=== PATIENT | female | born 1935 | race Asian ===

== ENCOUNTER 2016-06-08 11:30 | Inpatient (IN) | payer MEDICARE, OTHER ==
[~2016-06-08] VITALS: Ht 154.9 cm; Wt 48.9 kg
[2016-06-08] MEDS ORDERED: SERT50TA12 PO (11:45)
[2016-06-08] MEDS ORDERED: GABA-529 PO (11:45)
[2016-06-08] MEDS ORDERED: CLON.3 PO (11:45)
[2016-06-08] MEDS ORDERED: TELM40 PO (11:45)
[2016-06-08] MEDS ORDERED: CARV12 PO (11:45)
[2016-06-08] MEDS ORDERED: insulin SUBCON (11:45)
[2016-06-08] MEDS ORDERED: ACET-2247 PO (11:45)
[2016-06-08] MEDS ORDERED: PRAV40 PO (11:45)
[2016-06-08] MEDS ORDERED: CLON.3P TD (11:57)
[2016-06-08] MEDS ORDERED: SODIUM CHLORIDE 0.9% 1,000 ML IV ONE (12:00)
[2016-06-08] MEDS ORDERED: ACETAMINOPHEN 1000 MG/ISO-OSM 100 ML IV ONE (12:00)
[2016-06-08 12:08] LABS: BASOPHILS # (AUTO) 0.01 K/uL (0.00-0.20); BASOPHILS % (AUTO) 0.1 % (0.0-2.0); EOSINOPHILS # (AUTO) 0.14 K/uL (0.00-0.70); EOSINOPHILS % (AUTO) 1.24 % (1.0-6.0); HEMATOCRIT 25.7 % (36-46); HEMOGLOBIN 8.4 g/dL (12.0-16.0); LYMPHOCYTES # (AUTO) 0.6 K/uL (1.0-4.8); LYMPHOCYTES % (AUTO) 5.5 % (22.0-44.0); MEAN CORPUSCULAR HGB CONC 32.8 G/dL (31.0-37.0); MEAN CORPUSCULAR VOLUME 95 fL (80-100); MONOCYTES # (AUTO) 0.7 K/uL (0.1-1.0); MONOCYTES % (AUTO) 5.7 % (2.0-9.0); NEUTROPHILS % (AUTO) 87.5 % (40.0-70.0); PLATELET COUNT (AUTO) 419 K/uL (150-450); RED BLOOD CELL COUNT(AUTO) 2.71 MIL/uL (4.00-5.20); WHITE BLOOD COUNT (AUTO) 11.4 K/uL (4.5-11.0)
[2016-06-08 12:24] LABS: ANION GAP 11 mmol/L (8-16); CALCIUM, TOTAL 8.9 mg/dL (8.8-10.5); CARBON DIOXIDE 24 mmol/L (22-29); CHLORIDE 99 mmol/L (98-107); CREATININE 1.49 mg/dL (0.60-1.30); GLOMERULAR FILTR. RATE CALC 34 mL/min (>60); POTASSIUM 4.4 mmol/L (3.5-5.1); SODIUM SERUM 134 mmol/L (136-145); UREA NITROGEN, BLOOD 28 mg/dL (7-18)
[2016-06-08 12:25] LABS: B-TYPE NATRIURETIC PEPTIDE 1120 pg/mL (0-100)
[2016-06-08 12:30] LABS: ALANINE AMINOTRANSFERASE 30 U/L (12-78); ALBUMIN 2.7 g/dL (3.4-5.0); ASPARTATE AMINOTRANSFERASE 31 U/L (15-37); BILIRUBIN,TOTAL 0.5 mg/dL (0.1-1.0); CREATINE KINASE, TOTAL 35 U/L (26-192); TOTAL PROTEIN, SERUM 7.1 g/dL (6.4-8.2)
[2016-06-08 12:38] LABS: RBC MORPHOLOGY COMMENT ABNORMAL RBC MORPH
[2016-06-08 13:21] LABS: GLUCOSE,POINT OF CARE 148 MG/DL (70-110)
[2016-06-08] MEDS ORDERED: FUROSEMIDE 40 MG/4 ML VIAL IVP ONE (13:45)
[2016-06-08] MEDS ORDERED: FURO20 PO (13:46)
[2016-06-08] MEDS ORDERED: AZITHROMYCIN 500 MG/NS 250 ML IV ONE (14:30)
[2016-06-08] MEDS ORDERED: CefTRIAXone 1 GM/DEXTROSE 50 ML IV ONE (14:30)
[2016-06-08 14:56] LABS: APPEARANCE,URINE CLEAR (CLEAR); GLUCOSE, URINE (UA) NEGATIVE (NEGATIVE); KETONES,URINE NEGATIVE (NEGATIVE); LEUKOCYTE ESTERASE ,URINE NEGATIVE (NEGATIVE); OCCULT BLOOD,URINE NEGATIVE (NEGATIVE); PH,URINE 6.5 (5.0-8.0); PROTEIN,URINE SEE CONFIRM (NEGATIVE)
[2016-06-08 14:57] LABS: ADD UA MICROSCOPIC YES
[2016-06-08 14:59] LABS: SULFOSALICYLIC ACID,URINE 2+ (Negative)
[2016-06-08 15:01] LABS: RBC,URINE 0-2 /HPF (0-2); SQUAMOUS EPITHELIAL CELL,UR Few /LPF (None Seen); WBC,URINE 0-2 /HPF (0-5)
[2016-06-08 16:39] LABS: INFLUENZA TYPE B NEGATIVE FOR TYPE B (NEGATIVE)
[2016-06-08] MEDS ORDERED: ZOLPIDEM TARTRATE 5 MG TABLET PO PRN (17:00)
[2016-06-08] MEDS ORDERED: CloNIDine HCL 0.3 MG/24 HOUR PATCH TD SCH (17:00)
[2016-06-08] MEDS ORDERED: BISACODYL 10 MG RECTAL RECTAL SUPPOSITORY PR PRN (17:00)
[2016-06-08] MEDS ORDERED: ALBUTEROL SULFATE 2.5 MG/0.5 ML NEB SOLUTION NEB PRN (17:00)
[2016-06-08] MEDS ORDERED: ONDANSETRON HCL 4 MG/2 ML VIAL IVP PRN (17:00)
[2016-06-08] MEDS ORDERED: MAGNESIUM HYDROXIDE SUSPENSION 30 ML UDCUP PO PRN (17:00)
[2016-06-08] MEDS ORDERED: IPRATROPIUM BROMIDE 0.5 MG/2.5 ML NEB SOLUTION NEB PRN (17:00)
[2016-06-08] MEDS ORDERED: HYDROCODONE/ACETAMINOPHEN 5-325 MG TABLET PO PRN (17:15)
[2016-06-08] MEDS ORDERED: DEXTROSE 50%-WATER 25 GM/50 ML SYRINGE IVP PRN (17:15)
[2016-06-08] MEDS ORDERED: ACETAMINOPHEN 500 MG TABLET PO PRN (17:15)
[2016-06-08 17:33] VITALS: BP 154/74
[2016-06-08 19:31] VITALS: BP 186/80
[2016-06-08] MEDS: FUROSEMIDE 20 MG/2 ML VIAL IVP SCH (20:10)
[2016-06-08] MEDS: HEPARIN SODIUM,PORCINE 5,000 UNITS/ML VIAL SQ SCH (20:11)
[2016-06-08] MEDS: CARVEDILOL 12.5 MG TABLET PO SCH (20:13)
[2016-06-08 21:00] VITALS: BP 157/88
[2016-06-08] MEDS ORDERED: SODIUM CHLORIDE 0.9% 500 ML IV ONE (21:52)
[2016-06-08] MEDS: DOXYCYCLINE 100 MG in DEXTROSE 5%-WATER 100 ML IV SCH (22:14)
[2016-06-08] MEDS: SERTRALINE HCL 50 MG TABLET PO SCH (22:14)
[2016-06-08 23:46] VITALS: BP 205/90
[2016-06-09] VITALS (9 sets, daily range): BP systolic 114–213; BP diastolic 76–107
[2016-06-09] MEDS: HydrALAZINE HCL 10 MG TABLET PO PRN ×3 (00:01→17:12)
[2016-06-09 05:09] LABS: TROPONIN I 0.05 ng/mL (0.00-0.05)
[2016-06-09 05:21] LABS: AMMONIA < 10 umol/L (11-32)
[2016-06-09 05:37] LABS: BASOPHILS % (AUTO) 0.1 % (0.0-2.0); EOSINOPHILS % (AUTO) 1.9 % (1.0-6.0); HEMATOCRIT 25.5 % (36-46); HEMOGLOBIN 8.1 g/dL (12.0-16.0); LYMPHOCYTES % (AUTO) 8.5 % (22.0-44.0); MEAN CORPUSCULAR HEMOGLOBIN 30.1 pg (26.0-34.0); MEAN CORPUSCULAR HGB CONC 31.9 G/dL (31.0-37.0); MEAN CORPUSCULAR VOLUME 94 fL (80-100); MONOCYTES # (AUTO) 0.9 K/uL (0.1-1.0); MONOCYTES % (AUTO) 7.6 % (2.0-9.0); NEUTROPHILS # (AUTO) 9.3 K/uL (1.8-7.7); NEUTROPHILS % (AUTO) 81.9 % (40.0-70.0); PLATELET COUNT (AUTO) 409 K/uL (150-450); RED CELL DISTRIBUTION WIDTH 18.4 % (11.5-14.5); WHITE BLOOD COUNT (AUTO) 11.4 K/uL (4.5-11.0)
[2016-06-09 05:49] LABS: PROCALCITONIN (PCT) 30.86 ng/mL (<0.50)
[2016-06-09 05:50] LABS: ANION GAP 12 mmol/L (8-16); CARBON DIOXIDE 26 mmol/L (22-29); CHLORIDE 99 mmol/L (98-107); CHOL/HDL RATIO 2.2 (3.9-5.7); CREATINE KINASE, TOTAL 36 U/L (26-192); CREATININE 1.54 mg/dL (0.60-1.30); GLOMERULAR FILTR. RATE CALC 32 mL/min (>60); PHOSPHORUS 3.9 mg/dL (2.5-4.9); POTASSIUM 3.8 mmol/L (3.5-5.1); SODIUM SERUM 137 mmol/L (136-145); THYROID STIMULATING HORMONE 1.02 uIU/mL (0.36-3.74); UREA NITROGEN, BLOOD 28 mg/dL (7-18)
[2016-06-09] MEDS: FUROSEMIDE 20 MG/2 ML VIAL IVP SCH ×2 (08:26→20:16)
[2016-06-09] MEDS: PANTOPRAZOLE SODIUM 40 MG/VIAL IVP SCH (08:26)
[2016-06-09] MEDS: DOXYCYCLINE 100 MG in DEXTROSE 5%-WATER 100 ML IV SCH ×2 (08:26→20:17)
[2016-06-09] MEDS: PRAVASTATIN SODIUM 40 MG TABLET PO SCH (08:27)
[2016-06-09] MEDS: CARVEDILOL 12.5 MG TABLET PO SCH ×2 (08:27→20:16)
[2016-06-09] MEDS: EPOETIN ALFA 10,000 UNITS/ML VIAL SQ SCH (08:28)
[2016-06-09] MEDS: HEPARIN SODIUM,PORCINE 5,000 UNITS/ML VIAL SQ SCH ×2 (08:28→20:16)
[2016-06-09] MEDS ORDERED: TELMISARTAN 40 MG TABLET PO SCH (09:00)
[2016-06-09] MEDS ORDERED: ENOXAPARIN SODIUM 40 MG/0.4 ML PF SYRINGE SQ SCH (09:00)
[2016-06-09 09:10] LABS: HEMOGLOBIN A1C 8.2 % (4.5-6.2)
[2016-06-09 09:29] LABS: VITAMIN B12 LEVEL 528 pg/mL (211-911)
[2016-06-09] MEDS ORDERED: POTASSIUM CHL 10 MEQ/WATER 50 ML IV PRN (09:30)
[2016-06-09] MEDS ORDERED: MAGNESIUM SULFATE 2 GM in DEXTROSE 5%-WATER 50 ML IV PRN (09:30)
[2016-06-09] MEDS ORDERED: MAGNESIUM SULFATE 4 GM/WATER 100 ML IV PRN (09:30)
[2016-06-09] MEDS ORDERED: POTASSIUM CHLORIDE 20 MEQ ER TABLET PO PRN ×2 (09:30)
[2016-06-09] MEDS ORDERED: MAGNESIUM OXIDE 400 MG TABLET PO PRN (09:30)
[2016-06-09 09:58] LABS: ABG A-A DIFF O2 31.6 mmHg (10-20.0); ABG BASE EXCESS 1.1 mmol/L (-2.0-3.0); ABG HCO3 25.4 mmol/L (22.0-26.0); ABG OXYHEMOGLOBIN 96.9 % (94.0-100.0); ABG PCO2 40 mmHg (35-45); ABG PH 7.423 (7.35-7.450); ALLEN TEST, BLOOD GAS Positive; TEMPERATURE, FAHRENHEIT, BG 97.7 FAHREN (96.0-98.6)
[2016-06-09] MEDS: ASPIRIN 325 MG TABLET PO SCH (10:30)
[2016-06-09] MEDS ORDERED: AmLODIPine BESYLATE 5 MG TABLET PO SCH (11:15)
[2016-06-09 12:17] LABS: GLUCOSE,POINT OF CARE 103 MG/DL (70-110)
[2016-06-09 13:02] LABS: GLUCOSE,POINT OF CARE 189 MG/DL (70-110)
[2016-06-09] MEDS ORDERED: AZITHROMYCIN 500 MG/NS 250 ML IV SCH (16:00)
[2016-06-09] MEDS: CefTRIAXone 1 GM/DEXTROSE 50 ML IV SCH (17:18)
[2016-06-09] MEDS: INSULIN ASPART 100 UNITS/ML SQ PRN ×2 (17:31→20:54)
[2016-06-09 19:56] LABS: GLUCOSE,POINT OF CARE 148 MG/DL (70-110)
[2016-06-09 19:57] LABS: GLUCOSE COMMENT 1 Received Meds; GLUCOSE,POINT OF CARE 279 MG/DL (70-110)
[2016-06-09] MEDS: SERTRALINE HCL 50 MG TABLET PO SCH (20:16)
[2016-06-09] MEDS: HydrALAZINE HCL 10 MG TABLET PO SCH (20:16)
[2016-06-09] MEDS: TRIAMCINOLONE 0.1% 15 GM OINTMENT TP SCH (20:16)
[2016-06-09] MEDS: AmLODIPine BESYLATE 5 MG TABLET PO SCH (20:16)
[2016-06-10 03:59] VITALS: BP 154/74
[2016-06-10 07:50] VITALS: BP 132/90
[2016-06-10 08:05] LABS: CALCIUM, TOTAL 9.1 mg/dL (8.8-10.5); CREATININE 1.53 mg/dL (0.60-1.30); MAGNESIUM 1.9 mg/dL (1.80-2.40); PHOSPHORUS 2.8 mg/dL (2.5-4.9); POTASSIUM 3.6 mmol/L (3.5-5.1)
[2016-06-10 08:28] LABS: BASOPHILS % (AUTO) 0.1 % (0.0-2.0); EOSINOPHILS % (AUTO) 3.1 % (1.0-6.0); HEMATOCRIT 25.8 % (36-46); HEMOGLOBIN 8.1 g/dL (12.0-16.0); LYMPHOCYTES # (AUTO) 1.3 K/uL (1.0-4.8); LYMPHOCYTES % (AUTO) 11.1 % (22.0-44.0); MEAN CORPUSCULAR HEMOGLOBIN 30.1 pg (26.0-34.0); MEAN CORPUSCULAR HGB CONC 31.6 G/dL (31.0-37.0); MEAN CORPUSCULAR VOLUME 95 fL (80-100); MONOCYTES # (AUTO) 1.1 K/uL (0.1-1.0); MONOCYTES % (AUTO) 9.2 % (2.0-9.0); NEUTROPHILS # (AUTO) 8.7 K/uL (1.8-7.7); NEUTROPHILS % (AUTO) 76.5 % (40.0-70.0); PLATELET COUNT (AUTO) 422 K/uL (150-450); RED CELL DISTRIBUTION WIDTH 17.7 % (11.5-14.5); WHITE BLOOD COUNT (AUTO) 11.4 K/uL (4.5-11.0)
[2016-06-10] MEDS: AmLODIPine BESYLATE 5 MG TABLET PO SCH ×2 (08:47→21:21)
[2016-06-10] MEDS: PRAVASTATIN SODIUM 40 MG TABLET PO SCH (08:48)
[2016-06-10] MEDS: HEPARIN SODIUM,PORCINE 5,000 UNITS/ML VIAL SQ SCH (08:48)
[2016-06-10] MEDS: PANTOPRAZOLE SODIUM 40 MG/VIAL IVP SCH (08:48)
[2016-06-10] MEDS: ASPIRIN 325 MG TABLET PO SCH (08:48)
[2016-06-10] MEDS: CARVEDILOL 12.5 MG TABLET PO SCH ×2 (08:48→21:21)
[2016-06-10] MEDS: DOXYCYCLINE 100 MG in DEXTROSE 5%-WATER 100 ML IV SCH ×2 (09:09→21:21)
[2016-06-10] MEDS: TRIAMCINOLONE 0.1% 15 GM OINTMENT TP SCH ×2 (09:09→21:22)
[2016-06-10] MEDS: FUROSEMIDE 20 MG/2 ML VIAL IVP SCH ×2 (09:15→21:21)
[2016-06-10] MEDS: HydrALAZINE HCL 10 MG TABLET PO SCH ×2 (09:54→21:22)
[2016-06-10 11:20] VITALS: BP 164/81
[2016-06-10] MEDS: INSULIN ASPART 100 UNITS/ML SQ PRN ×2 (12:57→21:24)
[2016-06-10] MEDS: TELMISARTAN 40 MG TABLET PO SCH (13:54)
[2016-06-10] MEDS: CefTRIAXone 1 GM/DEXTROSE 50 ML IV SCH (15:06)
[2016-06-10 15:46] VITALS: BP 140/73
[2016-06-10 19:52] VITALS: BP 141/76
[2016-06-10] MEDS: APIXABAN 2.5 MG TABLET PO SCH (21:22)
[2016-06-10] MEDS: AMIODARONE HCL 200 MG TABLET PO SCH (21:22)
[2016-06-10] MEDS: SERTRALINE HCL 50 MG TABLET PO SCH (21:22)
[2016-06-11] VITALS (7 sets, daily range): BP systolic 109–170; BP diastolic 52–75
[2016-06-11] MEDS: INSULIN ASPART 100 UNITS/ML SQ PRN ×3 (06:08→17:58)
[2016-06-11 06:20] LABS: BASOPHILS # (AUTO) 0.03 K/uL (0.00-0.20); BASOPHILS % (AUTO) 0.4 % (0.0-2.0); EOSINOPHILS # (AUTO) 0.34 K/uL (0.00-0.70); HEMATOCRIT 25.8 % (36-46); HEMOGLOBIN 8.6 g/dL (12.0-16.0); LYMPHOCYTES # (AUTO) 0.9 K/uL (1.0-4.8); LYMPHOCYTES % (AUTO) 10.5 % (22.0-44.0); MEAN CORPUSCULAR HEMOGLOBIN 30.8 pg (26.0-34.0); MEAN CORPUSCULAR HGB CONC 33.5 G/dL (31.0-37.0); MEAN CORPUSCULAR VOLUME 92 fL (80-100); MONOCYTES # (AUTO) 0.8 K/uL (0.1-1.0); MONOCYTES % (AUTO) 9.6 % (2.0-9.0); NEUTROPHILS # (AUTO) 6.6 K/uL (1.8-7.7); NEUTROPHILS % (AUTO) 75.7 % (40.0-70.0); PLATELET COUNT (AUTO) 423 K/uL (150-450); RED CELL DISTRIBUTION WIDTH 18.2 % (11.5-14.5); WHITE BLOOD COUNT (AUTO) 8.7 K/uL (4.5-11.0)
[2016-06-11 07:04] LABS: RBC MORPHOLOGY COMMENT ABNORMAL RBC MORPH
[2016-06-11 07:05] LABS: CALCIUM, TOTAL 9.3 mg/dL (8.8-10.5); CREATININE 1.69 mg/dL (0.60-1.30); MAGNESIUM 1.6 mg/dL (1.80-2.40); PHOSPHORUS 3.6 mg/dL (2.5-4.9); POTASSIUM 4.1 mmol/L (3.5-5.1)
[2016-06-11] MEDS ORDERED: MAGNESIUM SULFATE 1 GM in DEXTROSE 5%-WATER 50 ML IV ONE (07:45)
[2016-06-11] MEDS: PANTOPRAZOLE SODIUM 40 MG/VIAL IVP SCH (07:55)
[2016-06-11] MEDS: FUROSEMIDE 20 MG/2 ML VIAL IVP SCH ×2 (07:55→20:32)
[2016-06-11] MEDS: CARVEDILOL 12.5 MG TABLET PO SCH ×2 (07:56→20:32)
[2016-06-11] MEDS: ASPIRIN 325 MG TABLET PO SCH (07:56)
[2016-06-11] MEDS: AMIODARONE HCL 200 MG TABLET PO SCH ×2 (07:56→20:32)
[2016-06-11] MEDS: APIXABAN 2.5 MG TABLET PO SCH ×2 (07:56→20:32)
[2016-06-11] MEDS: EPOETIN ALFA 10,000 UNITS/ML VIAL SQ SCH (07:56)
[2016-06-11] MEDS: HydrALAZINE HCL 10 MG TABLET PO SCH ×2 (07:56→20:32)
[2016-06-11] MEDS: AmLODIPine BESYLATE 5 MG TABLET PO SCH ×2 (07:56→20:32)
[2016-06-11] MEDS: PRAVASTATIN SODIUM 40 MG TABLET PO SCH (07:56)
[2016-06-11] MEDS: TRIAMCINOLONE 0.1% 15 GM OINTMENT TP SCH ×2 (07:57→20:32)
[2016-06-11] MEDS: TELMISARTAN 40 MG TABLET PO SCH (07:57)
[2016-06-11] MEDS: DOXYCYCLINE 100 MG in DEXTROSE 5%-WATER 100 ML IV SCH ×2 (07:57→20:31)
[2016-06-11] MEDS: CefTRIAXone 1 GM/DEXTROSE 50 ML IV SCH (15:52)
[2016-06-11] MEDS ORDERED: INSULIN DETEMIR 100 UNITS/ML SQ SCH (18:00)
[2016-06-11 18:07] LABS: GLUCOSE COMMENT 1 Received Meds; GLUCOSE,POINT OF CARE 215 MG/DL (70-110)
[2016-06-11 18:08] LABS: GLUCOSE COMMENT 1 Received Meds; GLUCOSE,POINT OF CARE 170 MG/DL (70-110)
[2016-06-11 18:08] LABS: GLUCOSE,POINT OF CARE 115 MG/DL (70-110)
[2016-06-11 18:08] LABS: GLUCOSE,POINT OF CARE 105 MG/DL (70-110)
[2016-06-11 18:08] LABS: GLUCOSE COMMENT 1 Received Meds; GLUCOSE,POINT OF CARE 301 MG/DL (70-110)
[2016-06-11 18:12] LABS: GLUCOSE COMMENT 1 Received Meds; GLUCOSE,POINT OF CARE 178 MG/DL (70-110)
[2016-06-11 18:12] LABS: GLUCOSE COMMENT 1 Received Meds; GLUCOSE,POINT OF CARE 266 MG/DL (70-110)
[2016-06-11] MEDS: SERTRALINE HCL 50 MG TABLET PO SCH (20:32)
[2016-06-11 23:06] LABS: GLUCOSE COMMENT 1 Received Meds; GLUCOSE,POINT OF CARE 213 MG/DL (70-110)
[2016-06-11 23:07] LABS: GLUCOSE,POINT OF CARE 240 MG/DL (70-110)
[2016-06-11 23:07] LABS: GLUCOSE COMMENT 1 Juice/Food/D50 Given; GLUCOSE,POINT OF CARE 49 MG/DL (70-110)
[2016-06-12 03:50] VITALS: BP 179/70
[2016-06-12] MEDS: HydrALAZINE HCL 10 MG TABLET PO PRN (04:01)
[2016-06-12 06:23] LABS: IGG (IMMUNOFIXATION) 1018 mg/dL (700-1600)
[2016-06-12 07:08] LABS: CALCIUM, TOTAL 9.9 mg/dL (8.8-10.5); CREATININE 1.57 mg/dL (0.60-1.30); MAGNESIUM 1.8 mg/dL (1.80-2.40); PHOSPHORUS 4.2 mg/dL (2.5-4.9); POTASSIUM 4.2 mmol/L (3.5-5.1)
[2016-06-12 08:22] VITALS: BP 167/65
[2016-06-12] MEDS: HydrALAZINE HCL 10 MG TABLET PO SCH (08:40)
[2016-06-12] MEDS: PRAVASTATIN SODIUM 40 MG TABLET PO SCH (08:40)
[2016-06-12] MEDS: PANTOPRAZOLE SODIUM 40 MG/VIAL IVP SCH (08:40)
[2016-06-12] MEDS: AmLODIPine BESYLATE 5 MG TABLET PO SCH (08:40)
[2016-06-12] MEDS: AMIODARONE HCL 200 MG TABLET PO SCH (08:40)
[2016-06-12] MEDS: TELMISARTAN 40 MG TABLET PO SCH (08:41)
[2016-06-12] MEDS: FUROSEMIDE 20 MG/2 ML VIAL IVP SCH (08:41)
[2016-06-12] MEDS: TRIAMCINOLONE 0.1% 15 GM OINTMENT TP SCH (08:41)
[2016-06-12] MEDS: APIXABAN 2.5 MG TABLET PO SCH (08:41)
[2016-06-12] MEDS: CARVEDILOL 12.5 MG TABLET PO SCH (08:41)
[2016-06-12] MEDS: DOXYCYCLINE 100 MG in DEXTROSE 5%-WATER 100 ML IV SCH (08:44)
[2016-06-12] MEDS ORDERED: 0.9% SODIUM CHLORIDE 10 ML SYRINGE IVP PRN (11:15)
[2016-06-12] MEDS: INSULIN ASPART 100 UNITS/ML SQ PRN (11:37)
[2016-06-12 11:43] VITALS: BP 168/73
[2016-06-12 12:22] LABS: ORGANISM ID Not indicated.
[2016-06-12] MEDS ORDERED: AMIO200T2 PO (13:47)
[2016-06-12] MEDS ORDERED: AMIO100T4 PO (13:49)
[2016-06-12] MEDS ORDERED: APIX2.5T PO (13:50)
[2016-06-12] MEDS ORDERED: AMLO-511 PO (13:50)
[2016-06-12] MEDS ORDERED: LEVO500 PO (13:51)
[2016-06-12] MEDS ORDERED: HYDR10 PO (13:54)
[2016-06-12] MEDS ORDERED: EPOE10I SQ (13:54)
[2016-06-12] MEDS ORDERED: PANT40TA25 PO (13:56)
[2016-06-12] MEDS ORDERED: TELM40 PO (13:57)
[2016-06-12] MEDS ORDERED: TRIA15CR45 TP (14:03)
[2016-06-12] MEDS: CefTRIAXone 1 GM/DEXTROSE 50 ML IV SCH (14:13)
[2016-06-12 15:19] VITALS: BP 147/62
[2016-06-12 15:27] LABS: GLUCOSE,POINT OF CARE 147 MG/DL (70-110)
[2016-06-12 15:56] LABS: GLUCOSE COMMENT 1 Received Meds; GLUCOSE,POINT OF CARE 339 MG/DL (70-110)
[2016-06-13] MEDS ORDERED: INSULIN DETEMIR 100 UNITS/ML SQ SCH (08:00)
[2016-06-14 09:41] LABS: ALBUMIN URINE (ELP24) 47.4 %; ALPHA-1 URINE (ELP24) 7.8 %; ALPHA-2 URINE(ELP24) 14.4 %; BETA URINE(ELP24) 16.2 %; GAMMA URINE(ELP24) 14.2 %; TOTAL PROTEIN URINE 29.6 mg/dL (Not Estab.)
[2016-06-15 19:36] LABS: GLUCOSE,POINT OF CARE 86 MG/DL (70-110)
[2016-06-15 19:46] LABS: GLUCOSE,POINT OF CARE 122 MG/DL (70-110)
== END 2016-06-12 17:25 | DRG 871 ==
LOC: EDUNIT# 11:30 → EMS 11:35 → 5N 14:48 → 5S 17:10
PROVIDERS: ADMIT Internal Medicine Geriatric Medicine; ATTEND Internal Medicine Geriatric Medicine
DX: A41.9 Sepsis, unspecified organism (principal); G93.40 Encephalopathy, unspecified; J18.9 Pneumonia, unspecified organism; I50.31 Acute diastolic (congestive) heart failure; N18.4 Chronic kidney disease, stage 4 (severe); I13.0 Hypertensive heart and chronic kidney disease with heart failure and stage 1 through stage 4 chronic kidney disease, or unspecified chronic kidney disease; E87.1 Hypo-osmolality and hyponatremia; N13.30 Unspecified hydronephrosis; Z66 Do not resuscitate; E83.42 Hypomagnesemia; E11.21 Type 2 diabetes mellitus with diabetic nephropathy; E11.22 Type 2 diabetes mellitus with diabetic chronic kidney disease; D64.9 Anemia, unspecified; R41.81 Age-related cognitive decline; I70.0 Atherosclerosis of aorta; E21.3 Hyperparathyroidism, unspecified; F32.9 Major depressive disorder, single episode, unspecified; E78.5 Hyperlipidemia, unspecified; K80.20 Calculus of gallbladder without cholecystitis without obstruction; F03.90 Unspecified dementia, unspecified severity, without behavioral disturbance, psychotic disturbance, mood disturbance, and anxiety; I48.0 Paroxysmal atrial fibrillation; K57.30 Diverticulosis of large intestine without perforation or abscess without bleeding; K76.89 Other specified diseases of liver; N28.1 Cyst of kidney, acquired; N31.9 Neuromuscular dysfunction of bladder, unspecified; B02.9 Zoster without complications; Z88.8 Allergy status to other drugs, medicaments and biological substances; Z79.899 Other long term (current) drug therapy; Z79.4 Long term (current) use of insulin; Z90.710 Acquired absence of both cervix and uterus; Z98.890 Other specified postprocedural states; Z91.81 History of falling; Z86.73 Personal history of transient ischemic attack (TIA), and cerebral infarction without residual deficits; Z83.3 Family history of diabetes mellitus; Z82.49 Family history of ischemic heart disease and other diseases of the circulatory system
CPT/HCPCS: 51702; 70450; 71250; 74176; 76700; 81050; 82306; 82607; 82746; 82784; 82805; 82962; 83036; 83540; 83550; 83605; 83735; 83970; 84100; 84145; 84156; 84166; 84439; 84443; 86334; 87040; 87070; 87081; 87147; 87205; 87449; 87804; 87899; 93005; 93306; 96365; 96366; 96367; 96368; 96375; 97162; 97165; 99285; C9113; J0131; J0456; J0696; J0885; J1644; J1940; J3475; J3490; J7030; J7040; J7060

== ENCOUNTER 2016-06-12 23:56 | Emergency (ER) | payer MEDICARE, OTHER ==
[~2016-06-12] VITALS: Ht 157.5 cm; Wt 59.0 kg
[~2016-06-12 23:56] MED LIST: ACET-2247 PO; AMIO100T4 PO; AMIO200T2 PO; AMLO-511 PO; APIX2.5T PO; CARV12 PO; CLON.3P TD; EPOE10I SQ; FURO20 PO; GABA-529 PO; HYDR10 PO; LEVO500 PO; PANT40TA25 PO; PRAV40 PO; SERT50TA12 PO; TELM40 PO; TRIA15CR45 TP; insulin SUBCON
[2016-06-13 00:27] LABS: GLUCOSE,POINT OF CARE 125 MG/DL (70-110)
[2016-06-13] MEDS: LIDOCAINE HCL BUFFERED 1% 20 ML VIAL INJ ONE (00:54)
[2016-06-13 02:37] VITALS: BP 105/60
== END 2016-06-13 03:01 | disposition home or self-care (01) ==
LOC: EMS 23:58
DX: S01.311A Laceration without foreign body of right ear, initial encounter (principal); E11.22 Type 2 diabetes mellitus with diabetic chronic kidney disease; I13.2 Hypertensive heart and chronic kidney disease with heart failure and with stage 5 chronic kidney disease, or end stage renal disease; I50.9 Heart failure, unspecified; I11.0 Hypertensive heart disease with heart failure; E78.00 Pure hypercholesterolemia, unspecified; N18.6 End stage renal disease; E11.40 Type 2 diabetes mellitus with diabetic neuropathy, unspecified; Z88.1 Allergy status to other antibiotic agents; W06.XXXA Fall from bed, initial encounter; Y93.89 Activity, other specified; Y92.89 Other specified places as the place of occurrence of the external cause; Y99.8 Other external cause status
CPT/HCPCS: 12013; 70450; 82962; 99284; J3490

== ENCOUNTER 2017-06-19 02:26 | Emergency (ER) | payer MEDICARE, OTHER ==
[~2017-06-19] VITALS: Ht 154.9 cm; Wt 52.7 kg
[~2017-06-19 02:26] MED LIST changes: -HYDR10 PO; +HYDR10TA31 PO; -PRAV40 PO; +PRAV40TA4 PO
[2017-06-19 03:39] VITALS: BP 190/81
[2017-06-19] MEDS ORDERED: LEVO50 PO (04:02)
[2017-06-19] MEDS ORDERED: SITA25 PO (04:02)
[2017-06-19] MEDS ORDERED: GLIP5 PO (04:02)
[2017-06-19] MEDS ORDERED: AMLO-512 PO (04:02)
== END 2017-06-19 04:12 | disposition home or self-care (01) ==
LOC: EMS 02:28
DX: S86.911A Strain of unspecified muscle(s) and tendon(s) at lower leg level, right leg, initial encounter (principal); S00.03XA Contusion of scalp, initial encounter; E05.90 Thyrotoxicosis, unspecified without thyrotoxic crisis or storm; E11.21 Type 2 diabetes mellitus with diabetic nephropathy; E78.00 Pure hypercholesterolemia, unspecified; F32.9 Major depressive disorder, single episode, unspecified; I11.0 Hypertensive heart disease with heart failure; I50.9 Heart failure, unspecified; Z79.01 Long term (current) use of anticoagulants; Z79.4 Long term (current) use of insulin; Z86.73 Personal history of transient ischemic attack (TIA), and cerebral infarction without residual deficits; Z90.710 Acquired absence of both cervix and uterus; Z79.899 Other long term (current) drug therapy; W01.198A Fall on same level from slipping, tripping and stumbling with subsequent striking against other object, initial encounter; Y93.89 Activity, other specified; Y92.89 Other specified places as the place of occurrence of the external cause; Y99.8 Other external cause status
CPT/HCPCS: 70450; 99284

== ENCOUNTER → 2018-06-30 | Outpatient (CLI) | payer MEDICARE, OTHER ==
[~2018-06-30] MED LIST changes: -AMIO100T4 PO; -AMIO200T2 PO; -AMLO-511 PO; +AMLO-512 PO; +AMOX1TAB15 PO; -APIX2.5T PO; +AUD NEB; +BISA10SU8 PR; +BISA5TAB12 RC; +BUME1TAB17 PO; +CLON.2 PO; -CLON.3P TD; +CLON0.3T PO; +DEXT15SY3 PO; +DSS100 PO; -EPOE10I SQ; +FERR-89 PO; +FLUT220HFA IH; +FURO-152 PO; -FURO20 PO; +FURO40 PO; -GABA-529 PO; +GLIP5 PO; -HYDR10TA31 PO; +HYDR25TA84 PO; +INSLAN SQ; +INSU100I26 SQ; +IPRNEB IH; +LEVO100 PO; +LEVO112T7 PO; -LEVO500 PO; +LIDO700A15 TD; +MULT-1103 PO; +ONDA4 PO; +PRAV20TA4 PO; +PRED20TA3 PO; +SITA50 PO; -TRIA15CR45 TP; +XALA2.5OS OU; +ZARO5 PO; +ZOLP5 PO; -insulin SUBCON
[2018-06-30 15:47] VITALS: BP 184/77
== END | disposition home or self-care (01) ==
LOC: SRCNTR 15:25
PROVIDERS: ATTEND Internal Medicine Critical Care Medicine
DX: I50.9 Heart failure, unspecified (principal); E11.9 Type 2 diabetes mellitus without complications; J45.909 Unspecified asthma, uncomplicated
CPT/HCPCS: G0463

== ENCOUNTER 2018-07-05 15:16 | Inpatient (IN) | payer MEDICARE, OTHER ==
[~2018-07-05] VITALS: Ht 162.6 cm; Wt 58.4 kg
[~2018-07-05 15:16] MED LIST changes: -BISA10SU8 PR; -BISA5TAB12 RC; -BUME1TAB17 PO; -CLON.2 PO; -DSS100 PO; -INSU100I26 SQ; -LIDO700A15 TD; -ONDA4 PO; -PRAV20TA4 PO; -ZARO5 PO; -ZOLP5 PO
[2018-07-05 15:53] LABS: BASOPHILS % (AUTO) 1.1 % (0.0-2.0); HEMATOCRIT 29.6 % (36-46); HEMOGLOBIN 9.5 g/dL (12.0-16.0); LYMPHOCYTES # (AUTO) 0.5 K/uL (1.0-4.8); LYMPHOCYTES % (AUTO) 11.5 % (22.0-44.0); MEAN CORPUSCULAR HEMOGLOBIN 30.6 pg (26.0-34.0); MEAN CORPUSCULAR HGB CONC 32.1 G/dL (31.0-37.0); MEAN CORPUSCULAR VOLUME 95 fL (80-100); MONOCYTES # (AUTO) 0.7 K/uL (0.1-1.0); MONOCYTES % (AUTO) 16.4 % (2.0-9.0); NEUTROPHILS # (AUTO) 2.9 K/uL (1.8-7.7); PLATELET COUNT (AUTO) 207 K/uL (150-450); RED BLOOD CELL COUNT(AUTO) 3.12 MIL/uL (4.00-5.20); RED CELL DISTRIBUTION WIDTH 17.2 % (11.5-14.5)
[2018-07-05] MEDS ORDERED: CLON.2 PO (16:00)
[2018-07-05] MEDS ORDERED: ZOLP5 PO (16:00)
[2018-07-05] MEDS ORDERED: PRAV20TA4 PO (16:00)
[2018-07-05] MEDS ORDERED: BISA5TAB12 RC (16:00)
[2018-07-05] MEDS ORDERED: BUME1TAB17 PO (16:00)
[2018-07-05] MEDS ORDERED: ONDA4 PO (16:00)
[2018-07-05] MEDS ORDERED: INSU100I26 SQ (16:00)
[2018-07-05] MEDS ORDERED: DSS100 PO (16:00)
[2018-07-05] MEDS ORDERED: ZARO5 PO (16:00)
[2018-07-05] MEDS ORDERED: IPRNEB IH (16:00)
[2018-07-05] MEDS ORDERED: LIDO700A15 TD (16:00)
[2018-07-05 16:01] LABS: CALCIUM, TOTAL 8.7 mg/dL (8.8-10.5); CREATININE 2.3 mg/dL (0.60-1.30); POTASSIUM 3.9 mmol/L (3.5-5.1)
[2018-07-05 16:08] LABS: ALBUMIN 2.2 g/dL (3.4-5.0); BILIRUBIN,TOTAL 0.2 mg/dL (0.1-1.0); TOTAL PROTEIN, SERUM 5.9 g/dL (6.4-8.2)
[2018-07-05 16:14] LABS: GLUCOSE,POINT OF CARE 101 MG/DL (70-110)
[2018-07-05 16:16] LABS: INR 0.9 (0.9-1.1); PROTHROMBIN TIME 9.6 SEC (9.4-11.6)
[2018-07-05] MEDS ORDERED: BISA10SU8 PR (16:55)
[2018-07-05] MEDS ORDERED: FUROSEMIDE 40 MG/4 ML VIAL IVP ONE ×2 (17:00→23:15)
[2018-07-05 17:19] LABS: GLUCOSE,POINT OF CARE 102 MG/DL (70-110)
[2018-07-05] MEDS ORDERED: 0.9% SODIUM CHLORIDE 10 ML SYRINGE IVP PRN (18:45)
[2018-07-05] MEDS ORDERED: ONDANSETRON HCL 4 MG/2 ML VIAL IVP PRN (18:45)
[2018-07-05] MEDS ORDERED: ACETAMINOPHEN 325 MG TABLET PO PRN ×2 (18:45→23:00)
[2018-07-05 18:54] LABS: GLUCOSE,POINT OF CARE 104 MG/DL (70-110)
[2018-07-05 19:06] LABS: ABG A-A DIFF O2 57.4 mmHg (10-20.0); ABG BASE EXCESS 3.8 mmol/L (-2.0-3.0); ABG CARBOXYHEMOGLOBIN 0.2 % (0.0-1.5); ABG HCO3 27.3 mmol/L (22.0-26.0); ABG METHEMOGLOBIN 0.3 % (0.0-1.5); ABG OXYGEN CONTENT 14.1 mL/dL (15.0-23.0); ABG OXYGEN SATURATION 96.3 % (95.0-98.0); ABG OXYHEMOGLOBIN 95.8 % (94.0-100.0); ABG PCO2 48 mmHg (35-45); ABG PH 7.396 (7.35-7.450); ABG TOTAL HEMOGLOBIN 10.4 G/dL (12.0-18.0); PO2, ARTERIAL BG 85.8 mmHg (71.0-79.0); SOURCE, BLOOD GAS ARTERIAL; TEMPERATURE, FAHRENHEIT, BG 98.6 FAHREN (96.0-98.6)
[2018-07-05 19:07] LABS: O2 DEVICE,BLOOD GAS CANNULA (ROOM AIR); SITE, BLOOD GAS RT RADIAL
[2018-07-05] MEDS ORDERED: CloNIDine HCL 0.2 MG TABLET PO ONE (19:30)
[2018-07-05] MEDS ORDERED: IPRATROPIUM BROMIDE 0.5 MG/2.5 ML NEB SOLUTION NEB SCH (20:00)
[2018-07-05] MEDS ORDERED: ALBUTEROL SULFATE 2.5 MG/0.5 ML NEB SOLUTION NEB SCH (20:00)
[2018-07-05 20:48] VITALS: BP 176/74
[2018-07-05] MEDS: LOSARTAN POTASSIUM 25 MG TABLET PO SCH (23:00)
[2018-07-05] MEDS ORDERED: BISACODYL 10 MG RECTAL RECTAL SUPPOSITORY PR PRN (23:00)
[2018-07-05] MEDS ORDERED: ALBUTEROL SULFATE 2.5 MG/0.5 ML NEB SOLUTION NEB PRN (23:00)
[2018-07-05] MEDS: CARVEDILOL 6.25 MG TABLET PO SCH (23:48)
[2018-07-05 23:54] VITALS: BP 150/68
[2018-07-06] VITALS (7 sets, daily range): BP systolic 133–195; BP diastolic 53–97
[2018-07-06 07:07] LABS: BASOPHILS % (AUTO) 1.1 % (0.0-2.0); EOSINOPHILS % (AUTO) 4.8 % (1.0-6.0); HEMATOCRIT 26.7 % (36-46); HEMOGLOBIN 8.7 g/dL (12.0-16.0); LYMPHOCYTES # (AUTO) 0.5 K/uL (1.0-4.8); LYMPHOCYTES % (AUTO) 14.8 % (22.0-44.0); MEAN CORPUSCULAR HEMOGLOBIN 30.9 pg (26.0-34.0); MEAN CORPUSCULAR HGB CONC 32.4 G/dL (31.0-37.0); MEAN CORPUSCULAR VOLUME 95 fL (80-100); MONOCYTES # (AUTO) 0.6 K/uL (0.1-1.0); MONOCYTES % (AUTO) 17.3 % (2.0-9.0); NEUTROPHILS # (AUTO) 2.2 K/uL (1.8-7.7); PLATELET COUNT (AUTO) 186 K/uL (150-450); RED BLOOD CELL COUNT(AUTO) 2.81 MIL/uL (4.00-5.20); RED CELL DISTRIBUTION WIDTH 17.2 % (11.5-14.5)
[2018-07-06 07:35] LABS: ALBUMIN 1.9 g/dL (3.4-5.0); BILIRUBIN,TOTAL 0.3 mg/dL (0.1-1.0); CALCIUM, TOTAL 8.3 mg/dL (8.8-10.5); CREATININE 2.14 mg/dL (0.60-1.30); POTASSIUM 3.9 mmol/L (3.5-5.1); TOTAL PROTEIN, SERUM 4.7 g/dL (6.4-8.2)
[2018-07-06 07:39] LABS: GLUCOMETER DEV NAME(LOC) 5S.1; GLUCOSE,POINT OF CARE 166 MG/DL (70-110)
[2018-07-06] MEDS: DOCUSATE SODIUM 100 MG CAPSULE PO SCH ×2 (08:14→20:44)
[2018-07-06] MEDS: LOSARTAN POTASSIUM 25 MG TABLET PO SCH ×2 (08:14→20:44)
[2018-07-06] MEDS: ASPIRIN 81 MG CHEWABLE TABLET PO SCH (08:14)
[2018-07-06] MEDS: CARVEDILOL 6.25 MG TABLET PO SCH ×2 (08:15→20:45)
[2018-07-06] MEDS: FAMOTIDINE 20 MG TABLET PO SCH (08:15)
[2018-07-06] MEDS: HEPARIN SODIUM,PORCINE 5,000 UNITS/ML VIAL SQ SCH ×2 (08:15→20:45)
[2018-07-06] MEDS: FUROSEMIDE 40 MG/4 ML VIAL IVP SCH ×2 (08:15→20:45)
[2018-07-06] MEDS ORDERED: FUROSEMIDE 40 MG/4 ML VIAL IVP SCH (09:00)
[2018-07-06] MEDS: INSULIN LISPRO 100 UNITS/ML SQ PRN ×2 (12:03→17:52)
[2018-07-06 13:14] LABS: GLUCOMETER DEV NAME(LOC) 5S.1; GLUCOSE,POINT OF CARE 285 MG/DL (70-110)
[2018-07-06] MEDS: AmLODIPine BESYLATE 5 MG TABLET PO SCH (14:14)
[2018-07-06 23:53] LABS: GLUCOMETER DEV NAME(LOC) 5S.1; GLUCOSE,POINT OF CARE 178 MG/DL (70-110)
[2018-07-06 23:53] LABS: GLUCOMETER DEV NAME(LOC) 5S.1; GLUCOSE,POINT OF CARE 174 MG/DL (70-110)
[2018-07-07 05:30] VITALS: BP 186/76
[2018-07-07 06:01] LABS: BASOPHILS % (AUTO) 1.5 % (0.0-2.0); EOSINOPHILS % (AUTO) 4.6 % (1.0-6.0); HEMATOCRIT 28.8 % (36-46); HEMOGLOBIN 9.4 g/dL (12.0-16.0); LYMPHOCYTES # (AUTO) 0.7 K/uL (1.0-4.8); LYMPHOCYTES % (AUTO) 16.6 % (22.0-44.0); MEAN CORPUSCULAR HEMOGLOBIN 30.7 pg (26.0-34.0); MEAN CORPUSCULAR HGB CONC 32.6 G/dL (31.0-37.0); MEAN CORPUSCULAR VOLUME 94 fL (80-100); MONOCYTES # (AUTO) 0.8 K/uL (0.1-1.0); MONOCYTES % (AUTO) 17.7 % (2.0-9.0); NEUTROPHILS # (AUTO) 2.6 K/uL (1.8-7.7); NEUTROPHILS % (AUTO) 59.6 % (40.0-70.0); PLATELET COUNT (AUTO) 206 K/uL (150-450); RED BLOOD CELL COUNT(AUTO) 3.06 MIL/uL (4.00-5.20); RED CELL DISTRIBUTION WIDTH 16.5 % (11.5-14.5)
[2018-07-07 06:34] LABS: GLUCOMETER DEV NAME(LOC) 5N.1; GLUCOSE,POINT OF CARE 151 MG/DL (70-110)
[2018-07-07 06:43] LABS: % IRON SATURATION 19.7 % (22-44)
[2018-07-07 06:45] LABS: CALCIUM, TOTAL 8.7 mg/dL (8.8-10.5); CREATININE 2.15 mg/dL (0.60-1.30); MAGNESIUM 1.8 mg/dL (1.80-2.40); PHOSPHORUS 3.2 mg/dL (2.5-4.9); POTASSIUM 3.4 mmol/L (3.5-5.1)
[2018-07-07 07:43] VITALS: BP 196/72
[2018-07-07] MEDS: DOCUSATE SODIUM 100 MG CAPSULE PO SCH ×2 (09:07→21:10)
[2018-07-07] MEDS: HEPARIN SODIUM,PORCINE 5,000 UNITS/ML VIAL SQ SCH ×2 (09:07→21:09)
[2018-07-07] MEDS: CARVEDILOL 6.25 MG TABLET PO SCH ×2 (09:07→21:09)
[2018-07-07] MEDS: LOSARTAN POTASSIUM 25 MG TABLET PO SCH ×2 (09:07→21:10)
[2018-07-07] MEDS: FAMOTIDINE 20 MG TABLET PO SCH (09:07)
[2018-07-07] MEDS: AmLODIPine BESYLATE 5 MG TABLET PO SCH (09:07)
[2018-07-07] MEDS: FUROSEMIDE 40 MG/4 ML VIAL IVP SCH ×2 (09:07→21:09)
[2018-07-07] MEDS: ASPIRIN 81 MG CHEWABLE TABLET PO SCH (09:07)
[2018-07-07] MEDS: EPOETIN ALFA 10,000 UNITS/ML VIAL SQ SCH (09:12)
[2018-07-07 11:23] VITALS: BP 158/62
[2018-07-07] MEDS: INSULIN LISPRO 100 UNITS/ML SQ PRN ×3 (12:21→21:27)
[2018-07-07 15:09] VITALS: BP 160/80
[2018-07-07 15:34] LABS: GLUCOMETER DEV NAME(LOC) 5S.1; GLUCOSE,POINT OF CARE 242 MG/DL (70-110)
[2018-07-07] MEDS ORDERED: POTASSIUM CHLORIDE 20 MEQ ER TABLET PO ONE (16:30)
[2018-07-07] MEDS: POTASSIUM CHL 10 MEQ/WATER 50 ML IV SCH ×2 (16:30→17:30)
[2018-07-07] MEDS ORDERED: SODIUM CHLORIDE 0.9% 500 ML IV ONE (17:52)
[2018-07-07] MEDS: SOD FERRIC GLUC COMPLX/SUCROSE 125 MG in SODIUM CHLORIDE 0.9% 100 ML IV SCH (18:17)
[2018-07-07 20:59] VITALS: BP 187/74
[2018-07-07] MEDS ORDERED: SODIUM CHLORIDE 0.9% 250 ML IV ONE (21:01)
[2018-07-08 00:13] VITALS: BP 181/71
[2018-07-08] MEDS: CloNIDine HCL 0.1 MG TABLET PO PRN (04:06)
[2018-07-08 04:43] VITALS: BP 190/76
[2018-07-08 05:10] LABS: GLUCOMETER DEV NAME(LOC) 5N.1; GLUCOSE,POINT OF CARE 206 MG/DL (70-110)
[2018-07-08 05:10] LABS: GLUCOMETER DEV NAME(LOC) 5N.1; GLUCOSE,POINT OF CARE 161 MG/DL (70-110)
[2018-07-08 06:30] LABS: GLUCOMETER DEV NAME(LOC) 5S.1; GLUCOSE,POINT OF CARE 125 MG/DL (70-110)
[2018-07-08 06:36] LABS: CALCIUM, TOTAL 8.8 mg/dL (8.8-10.5); CREATININE 2.08 mg/dL (0.60-1.30); MAGNESIUM 1.7 mg/dL (1.80-2.40); PHOSPHORUS 3.1 mg/dL (2.5-4.9); POTASSIUM 3.9 mmol/L (3.5-5.1)
[2018-07-08 07:11] VITALS: BP 203/80
[2018-07-08] MEDS: LOSARTAN POTASSIUM 25 MG TABLET PO SCH ×2 (09:26→20:57)
[2018-07-08] MEDS: FAMOTIDINE 20 MG TABLET PO SCH (09:26)
[2018-07-08] MEDS: CARVEDILOL 6.25 MG TABLET PO SCH (09:26)
[2018-07-08] MEDS: DOCUSATE SODIUM 100 MG CAPSULE PO SCH ×2 (09:26→20:57)
[2018-07-08] MEDS: FUROSEMIDE 40 MG/4 ML VIAL IVP SCH ×2 (09:27→20:57)
[2018-07-08] MEDS: ASPIRIN 81 MG CHEWABLE TABLET PO SCH (09:27)
[2018-07-08] MEDS: AmLODIPine BESYLATE 5 MG TABLET PO SCH (09:27)
[2018-07-08] MEDS: HEPARIN SODIUM,PORCINE 5,000 UNITS/ML VIAL SQ SCH (09:27)
[2018-07-08 11:07] VITALS: BP 161/64
[2018-07-08] MEDS: INSULIN LISPRO 100 UNITS/ML SQ PRN ×3 (11:54→21:58)
[2018-07-08 13:24] LABS: GLUCOMETER DEV NAME(LOC) 5N.1; GLUCOSE,POINT OF CARE 165 MG/DL (70-110)
[2018-07-08 15:20] VITALS: BP 124/74
[2018-07-08] MEDS: SOD FERRIC GLUC COMPLX/SUCROSE 125 MG in SODIUM CHLORIDE 0.9% 100 ML IV SCH (16:34)
[2018-07-08 20:27] VITALS: BP 147/79
[2018-07-08] MEDS: APIXABAN 2.5 MG TABLET PO SCH ×2 (20:56→21:00)
[2018-07-09] MEDS: CARVEDILOL 12.5 MG TABLET PO SCH ×3 (00:28→20:30)
[2018-07-09] MEDS: HEPARIN SODIUM,PORCINE 5,000 UNITS/ML VIAL SQ SCH ×3 (00:29→20:30)
[2018-07-09 00:31] VITALS: BP 176/73
[2018-07-09 00:41] LABS: GLUCOMETER DEV NAME(LOC) 5N.1; GLUCOSE,POINT OF CARE 163 MG/DL (70-110)
[2018-07-09 00:41] LABS: GLUCOMETER DEV NAME(LOC) 5N.1; GLUCOSE,POINT OF CARE 195 MG/DL (70-110)
[2018-07-09 01:07] LABS: PROTEIN,URINE RANDOM 140 mg/dL (0-11.9)
[2018-07-09 01:43] LABS: CREATININE,URINE RANDOM < 5.0 mg/dL (30.0-125.0)
[2018-07-09 05:00] VITALS: BP 140/68
[2018-07-09 05:55] LABS: GLUCOMETER DEV NAME(LOC) 5S.1; GLUCOSE,POINT OF CARE 117 MG/DL (70-110)
[2018-07-09 06:39] LABS: CREATININE 1.98 mg/dL (0.60-1.30); MAGNESIUM 1.8 mg/dL (1.80-2.40); PHOSPHORUS 3.1 mg/dL (2.5-4.9); POTASSIUM 3.5 mmol/L (3.5-5.1)
[2018-07-09 07:35] VITALS: BP 169/64
[2018-07-09] MEDS: AmLODIPine BESYLATE 5 MG TABLET PO SCH (09:17)
[2018-07-09] MEDS: LOSARTAN POTASSIUM 25 MG TABLET PO SCH ×2 (09:17→20:30)
[2018-07-09] MEDS: DOCUSATE SODIUM 100 MG CAPSULE PO SCH ×2 (09:17→20:30)
[2018-07-09] MEDS: ASPIRIN 81 MG CHEWABLE TABLET PO SCH (09:17)
[2018-07-09] MEDS: FAMOTIDINE 20 MG TABLET PO SCH (09:17)
[2018-07-09] MEDS: FUROSEMIDE 40 MG/4 ML VIAL IVP SCH ×2 (09:17→20:30)
[2018-07-09] MEDS: APIXABAN 2.5 MG TABLET PO SCH (09:17)
[2018-07-09] MEDS: EPOETIN ALFA 10,000 UNITS/ML VIAL SQ SCH (09:18)
[2018-07-09 12:06] VITALS: BP 168/81
[2018-07-09] MEDS: INSULIN LISPRO 100 UNITS/ML SQ PRN ×2 (12:23→18:22)
[2018-07-09 14:49] LABS: GLUCOMETER DEV NAME(LOC) 5N.1; GLUCOSE,POINT OF CARE 208 MG/DL (70-110)
[2018-07-09 15:33] VITALS: BP 166/91
[2018-07-09 19:24] LABS: GLUCOMETER DEV NAME(LOC) 5N.1; GLUCOSE,POINT OF CARE 160 MG/DL (70-110)
[2018-07-09 19:46] VITALS: BP 189/76
[2018-07-09] MEDS: SOD FERRIC GLUC COMPLX/SUCROSE 125 MG in SODIUM CHLORIDE 0.9% 100 ML IV SCH (20:30)
[2018-07-09] MEDS: LATANOPROST 0.005% 2.5 ML OPHTHALMIC SOLUTION OU SCH (20:30)
[2018-07-09] MEDS ORDERED: INSULIN GLARGINE,HUM.REC.ANLOG 100 UNITS/ML SQ SCH (21:00)
[2018-07-10 00:18] VITALS: BP 192/75
[2018-07-10] MEDS: CloNIDine HCL 0.1 MG TABLET PO PRN (00:40)
[2018-07-10] MEDS: DEXTROSE 50%-WATER 25 GM/50 ML SYRINGE IVP PRN ×2 (02:42→05:54)
[2018-07-10 04:59] LABS: GLUCOMETER DEV NAME(LOC) 5S.2; GLUCOSE,POINT OF CARE 135 MG/DL (70-110)
[2018-07-10 05:04] LABS: GLUCOMETER DEV NAME(LOC) 5N.1; GLUCOSE,POINT OF CARE 22 MG/DL (70-110)
[2018-07-10 05:04] LABS: GLUCOMETER DEV NAME(LOC) 5N.1; GLUCOSE,POINT OF CARE 122 MG/DL (70-110)
[2018-07-10 05:05] VITALS: BP 173/85
[2018-07-10] MEDS: LEVOTHYROXINE SODIUM 112 MCG TABLET PO SCH (05:54)
[2018-07-10 06:40] LABS: BASOPHILS % (AUTO) 0.9 % (0.0-2.0); EOSINOPHILS % (AUTO) 2.7 % (1.0-6.0); HEMOGLOBIN 10.1 g/dL (12.0-16.0); LYMPHOCYTES # (AUTO) 0.6 K/uL (1.0-4.8); LYMPHOCYTES % (AUTO) 11.4 % (22.0-44.0); MEAN CORPUSCULAR HEMOGLOBIN 30.6 pg (26.0-34.0); MEAN CORPUSCULAR HGB CONC 32.6 G/dL (31.0-37.0); MEAN CORPUSCULAR VOLUME 94 fL (80-100); MONOCYTES # (AUTO) 0.6 K/uL (0.1-1.0); MONOCYTES % (AUTO) 11.8 % (2.0-9.0); NEUTROPHILS # (AUTO) 3.9 K/uL (1.8-7.7); NEUTROPHILS % (AUTO) 73.2 % (40.0-70.0); PLATELET COUNT (AUTO) 217 K/uL (150-450); RED BLOOD CELL COUNT(AUTO) 3.29 MIL/uL (4.00-5.20)
[2018-07-10 06:50] LABS: BILIRUBIN,TOTAL 0.2 mg/dL (0.1-1.0); CREATININE 2.05 mg/dL (0.60-1.30); MAGNESIUM 1.9 mg/dL (1.80-2.40); PHOSPHORUS 3.6 mg/dL (2.5-4.9); POTASSIUM 3.2 mmol/L (3.5-5.1); TOTAL PROTEIN, SERUM 5.4 g/dL (6.4-8.2)
[2018-07-10 07:23] LABS: HEMOGLOBIN A1C 8.8 % (4.5-6.2)
[2018-07-10 07:49] VITALS: BP 175/71
[2018-07-10] MEDS: PANTOPRAZOLE SODIUM 40 MG DR TABLET PO SCH (09:00)
[2018-07-10] MEDS: AmLODIPine BESYLATE 10 MG TABLET PO SCH (09:26)
[2018-07-10] MEDS: FAMOTIDINE 20 MG TABLET PO SCH (09:26)
[2018-07-10] MEDS: FUROSEMIDE 40 MG/4 ML VIAL IVP SCH ×2 (09:26→20:21)
[2018-07-10] MEDS: CARVEDILOL 12.5 MG TABLET PO SCH ×2 (09:26→20:20)
[2018-07-10] MEDS: DOCUSATE SODIUM 100 MG CAPSULE PO SCH ×2 (09:26→20:20)
[2018-07-10] MEDS: LOSARTAN POTASSIUM 25 MG TABLET PO SCH ×2 (09:26→20:20)
[2018-07-10] MEDS: HEPARIN SODIUM,PORCINE 5,000 UNITS/ML VIAL SQ SCH ×2 (09:26→20:20)
[2018-07-10] MEDS: ASPIRIN 81 MG CHEWABLE TABLET PO SCH (09:26)
[2018-07-10 11:04] LABS: GLUCOMETER DEV NAME(LOC) 5N.1; GLUCOSE,POINT OF CARE 111 MG/DL (70-110)
[2018-07-10 11:04] LABS: GLUCOMETER DEV NAME(LOC) 5N.1; GLUCOSE,POINT OF CARE 53 MG/DL (70-110)
[2018-07-10 11:33] VITALS: BP 155/65
[2018-07-10] MEDS ORDERED: POTASSIUM CHLORIDE 20 MEQ ER TABLET PO ONE (13:00)
[2018-07-10 15:16] VITALS: BP 181/73
[2018-07-10] MEDS: SOD FERRIC GLUC COMPLX/SUCROSE 125 MG in SODIUM CHLORIDE 0.9% 100 ML IV SCH (17:15)
[2018-07-10 19:50] LABS: CALCIUM, TOTAL 8.6 mg/dL (8.8-10.5); CREATININE 2.24 mg/dL (0.60-1.30)
[2018-07-10 19:54] LABS: MAGNESIUM 1.8 mg/dL (1.80-2.40); PHOSPHORUS 3.5 mg/dL (2.5-4.9)
[2018-07-10] MEDS: LATANOPROST 0.005% 2.5 ML OPHTHALMIC SOLUTION OU SCH (20:20)
[2018-07-10] MEDS: INSULIN LISPRO 100 UNITS/ML SQ PRN (20:24)
[2018-07-11 00:15] VITALS: BP 165/76
[2018-07-11 03:09] VITALS: BP 165/66
[2018-07-11] MEDS: CloNIDine HCL 0.1 MG TABLET PO PRN ×2 (03:10→13:32)
[2018-07-11 05:01] VITALS: BP 168/78
[2018-07-11 05:45] LABS: GLUCOMETER DEV NAME(LOC) 5N.1; GLUCOSE,POINT OF CARE 190 MG/DL (70-110)
[2018-07-11] MEDS: LEVOTHYROXINE SODIUM 112 MCG TABLET PO SCH (05:52)
[2018-07-11 06:25] LABS: GLUCOMETER DEV NAME(LOC) 5S.2; GLUCOSE,POINT OF CARE 166 MG/DL (70-110)
[2018-07-11 06:25] LABS: GLUCOMETER DEV NAME(LOC) 5S.2; GLUCOSE,POINT OF CARE 152 MG/DL (70-110)
[2018-07-11 06:25] LABS: GLUCOMETER DEV NAME(LOC) 5S.2; GLUCOSE,POINT OF CARE 126 MG/DL (70-110)
[2018-07-11 06:25] LABS: GLUCOMETER DEV NAME(LOC) 5S.2; GLUCOSE,POINT OF CARE 327 MG/DL (70-110)
[2018-07-11 06:55] LABS: CALCIUM, TOTAL 8.4 mg/dL (8.8-10.5); CREATININE 2.03 mg/dL (0.60-1.30); POTASSIUM 3.6 mmol/L (3.5-5.1)
[2018-07-11] MEDS: LOSARTAN POTASSIUM 25 MG TABLET PO SCH (09:06)
[2018-07-11] MEDS: CARVEDILOL 12.5 MG TABLET PO SCH (09:06)
[2018-07-11] MEDS: FUROSEMIDE 40 MG/4 ML VIAL IVP SCH (09:06)
[2018-07-11] MEDS: PANTOPRAZOLE SODIUM 40 MG DR TABLET PO SCH (09:06)
[2018-07-11] MEDS: AmLODIPine BESYLATE 10 MG TABLET PO SCH (09:06)
[2018-07-11] MEDS: FAMOTIDINE 20 MG TABLET PO SCH (09:06)
[2018-07-11] MEDS: ASPIRIN 81 MG CHEWABLE TABLET PO SCH (09:06)
[2018-07-11] MEDS: DOCUSATE SODIUM 100 MG CAPSULE PO SCH (09:08)
[2018-07-11] MEDS: HEPARIN SODIUM,PORCINE 5,000 UNITS/ML VIAL SQ SCH (09:10)
[2018-07-11] MEDS: EPOETIN ALFA 10,000 UNITS/ML VIAL SQ SCH (09:10)
[2018-07-11 09:42] LABS: IGM (IMMUNOFIXATION) 44 mg/dL (26-217)
[2018-07-11] MEDS: INSULIN LISPRO 100 UNITS/ML SQ PRN (11:31)
[2018-07-12 04:49] LABS: GLUCOMETER DEV NAME(LOC) 5S.1; GLUCOSE,POINT OF CARE 115 MG/DL (70-110)
[2018-07-14 15:24] LABS: ALBUMIN URINE (ELP) 52.1 %
== END 2018-07-11 15:50 | DRG 291 ==
LOC: EMS 15:17 → 5S 19:02
PROVIDERS: ADMIT Internal Medicine; ATTEND Internal Medicine Geriatric Medicine
DX: I13.0 Hypertensive heart and chronic kidney disease with heart failure and stage 1 through stage 4 chronic kidney disease, or unspecified chronic kidney disease (principal); I50.33 Acute on chronic diastolic (congestive) heart failure; E43 Unspecified severe protein-calorie malnutrition; J96.90 Respiratory failure, unspecified, unspecified whether with hypoxia or hypercapnia; N17.9 Acute kidney failure, unspecified; N18.4 Chronic kidney disease, stage 4 (severe); F03.90 Unspecified dementia, unspecified severity, without behavioral disturbance, psychotic disturbance, mood disturbance, and anxiety; E03.9 Hypothyroidism, unspecified; E11.22 Type 2 diabetes mellitus with diabetic chronic kidney disease; E11.649 Type 2 diabetes mellitus with hypoglycemia without coma; E11.21 Type 2 diabetes mellitus with diabetic nephropathy; E78.00 Pure hypercholesterolemia, unspecified; E78.5 Hyperlipidemia, unspecified; E87.6 Hypokalemia; F32.9 Major depressive disorder, single episode, unspecified; I48.0 Paroxysmal atrial fibrillation; T38.3X5A Adverse effect of insulin and oral hypoglycemic [antidiabetic] drugs, initial encounter; K59.00 Constipation, unspecified; M85.80 Other specified disorders of bone density and structure, unspecified site; J45.909 Unspecified asthma, uncomplicated; D63.8 Anemia in other chronic diseases classified elsewhere; Z90.710 Acquired absence of both cervix and uterus; Z82.49 Family history of ischemic heart disease and other diseases of the circulatory system; Z83.3 Family history of diabetes mellitus; Z68.22 Body mass index [BMI] 22.0-22.9, adult; Z87.01 Personal history of pneumonia (recurrent); Y92.89 Other specified places as the place of occurrence of the external cause; Z86.73 Personal history of transient ischemic attack (TIA), and cerebral infarction without residual deficits; Z79.899 Other long term (current) drug therapy
CPT/HCPCS: 36600; 70450; 70486; 72125; 82570; 82784; 82805; 83036; 83540; 83550; 83735; 84100; 84132; 84156; 84166; 86160; 86162; 86334; 87081; 93005; 93306; 96374; 97116; 97162; 97530; G0378; J0885; J1644; J1815; J1940; J2916; J7040; J7050

== ENCOUNTER 2018-09-11 19:46 | Inpatient (IN) | payer MEDICARE, OTHER ==
[~2018-09-11] VITALS: Ht 153 cm; Wt 58.3 kg
[~2018-09-11 19:46] MED LIST changes: -AMOX1TAB15 PO; +BISA10SU8 PR; +BUME1TAB17 PO; +CLON.2 PO; -CLON0.3T PO; -DEXT15SY3 PO; +DSS100 PO; -FLUT220HFA IH; -FURO-152 PO; -FURO40 PO; -GLIP5 PO; +INSU100I26 SQ; -LEVO100 PO; +LIDO700A15 TD; +ONDA4 PO; +PRAV20TA4 PO; -PRAV40TA4 PO; -PRED20TA3 PO; -SITA50 PO; -TELM40 PO; +ZARO5 PO; +ZOLP5 PO
[2018-09-11] MEDS ORDERED: INSU100V SQ (20:11)
[2018-09-11] MEDS ORDERED: FLUT220HFA IH (20:11)
[2018-09-11] MEDS ORDERED: ALBU90AE IH (20:11)
[2018-09-11] MEDS ORDERED: LOSA50TA64 PO (20:11)
[2018-09-11] MEDS ORDERED: CARV25 PO (20:11)
[2018-09-11] MEDS ORDERED: CLON-570 PO (20:11)
[2018-09-11] MEDS ORDERED: ASPI81 PO (20:11)
[2018-09-11 20:54] LABS: GLUCOSE,POINT OF CARE 72 MG/DL (70-110)
[2018-09-11 21:10] LABS: BASOPHILS % (AUTO) 0.7 % (0.0-2.0); EOSINOPHILS % (AUTO) 13.3 % (1.0-6.0); HEMATOCRIT 32.2 % (36-46); HEMOGLOBIN 10.3 g/dL (12.0-16.0); LYMPHOCYTES # (AUTO) 0.6 K/uL (1.0-4.8); LYMPHOCYTES % (AUTO) 9.5 % (22.0-44.0); MEAN CORPUSCULAR HEMOGLOBIN 30.4 pg (26.0-34.0); MEAN CORPUSCULAR HGB CONC 32.1 G/dL (31.0-37.0); MEAN CORPUSCULAR VOLUME 95 fL (80-100); MONOCYTES # (AUTO) 0.6 K/uL (0.1-1.0); MONOCYTES % (AUTO) 8.4 % (2.0-9.0); NEUTROPHILS # (AUTO) 4.6 K/uL (1.8-7.7); NEUTROPHILS % (AUTO) 68.1 % (40.0-70.0); PLATELET COUNT (AUTO) 212 K/uL (150-450); RED BLOOD CELL COUNT(AUTO) 3.41 MIL/uL (4.00-5.20)
[2018-09-11 21:16] LABS: APPEARANCE,URINE CLEAR (CLEAR); BILIRUBIN,URINE NEGATIVE (NEGATIVE); GLUCOSE, URINE (UA) NEGATIVE (NEGATIVE); KETONES,URINE NEGATIVE (NEGATIVE); LEUKOCYTE ESTERASE ,URINE NEGATIVE (NEGATIVE); NITRATE,URINE NEGATIVE (NEGATIVE); OCCULT BLOOD,URINE TRACE (NEGATIVE); PROTEIN,URINE SEE CONFIRM (NEGATIVE); UROBILINOGEN,URINE 0.2 mg/dL (<=1.0)
[2018-09-11 21:22] LABS: CALCIUM, TOTAL 9.1 mg/dL (8.8-10.5); CREATININE 2.13 mg/dL (0.60-1.30); POTASSIUM 4.5 mmol/L (3.5-5.1); PROTHROMBIN TIME 10.1 SEC (9.4-11.6)
[2018-09-11 21:31] LABS: SULFOSALICYLIC ACID,URINE 4+ (Negative)
[2018-09-11 21:32] LABS: BACTERIA,URINE None Seen /HPF (None Seen); RBC,URINE 0-2 /HPF (0-2); SQUAMOUS EPITHELIAL CELL,UR Rare /LPF (None Seen); WBC,URINE 0-2 /HPF (0-5)
[2018-09-11 21:46] LABS: ALBUMIN 2.5 g/dL (3.4-5.0); BILIRUBIN,TOTAL 0.3 mg/dL (0.1-1.0); TOTAL PROTEIN, SERUM 7.1 g/dL (6.4-8.2)
[2018-09-11] MEDS ORDERED: BUMETANIDE 0.25 MG/ML 4 ML VIAL IVP ONE (22:00)
[2018-09-11] MEDS ORDERED: DEXTROSE 50%-WATER 25 GM/50 ML SYRINGE IVP ONE (22:15)
[2018-09-11 22:24] LABS: GLUCOSE,POINT OF CARE 51 MG/DL (70-110)
[2018-09-11] MEDS ORDERED: ZOLPIDEM TARTRATE 5 MG TABLET PO PRN (22:45)
[2018-09-11] MEDS ORDERED: BISACODYL 10 MG RECTAL RECTAL SUPPOSITORY PR PRN (22:45)
[2018-09-11] MEDS ORDERED: MAGNESIUM HYDROXIDE SUSPENSION 30 ML UDCUP PO PRN (22:45)
[2018-09-11] MEDS ORDERED: ONDANSETRON HCL 4 MG/2 ML VIAL IVP PRN ×2 (22:45)
[2018-09-11] MEDS ORDERED: 0.9% SODIUM CHLORIDE 10 ML SYRINGE IVP PRN (22:45)
[2018-09-11] MEDS ORDERED: ACETAMINOPHEN 325 MG TABLET PO PRN ×2 (22:45)
[2018-09-11] MEDS ORDERED: DEXTROSE 50%-WATER 25 GM/50 ML SYRINGE IVP PRN (22:45)
[2018-09-11] MEDS ORDERED: IPRATROPIUM BROMIDE 0.5 MG/2.5 ML NEB SOLUTION NEB PRN (22:45)
[2018-09-11] MEDS ORDERED: ALBUTEROL SULFATE 2.5 MG/0.5 ML NEB SOLUTION NEB PRN (22:45)
[2018-09-11 23:34] LABS: GLUCOSE,POINT OF CARE 161 MG/DL (70-110)
[2018-09-12 01:29] LABS: GLUCOSE,POINT OF CARE 124 MG/DL (70-110)
[2018-09-12 02:00] VITALS: BP 188/84
[2018-09-12 04:56] VITALS: BP 160/78
[2018-09-12 06:04] LABS: BASOPHILS % (AUTO) 0.6 % (0.0-2.0); HEMATOCRIT 30.2 % (36-46); HEMOGLOBIN 9.7 g/dL (12.0-16.0); LYMPHOCYTES # (AUTO) 0.8 K/uL (1.0-4.8); LYMPHOCYTES % (AUTO) 14.2 % (22.0-44.0); MEAN CORPUSCULAR HEMOGLOBIN 30.7 pg (26.0-34.0); MEAN CORPUSCULAR HGB CONC 32.3 G/dL (31.0-37.0); MEAN CORPUSCULAR VOLUME 95 fL (80-100); MONOCYTES # (AUTO) 0.6 K/uL (0.1-1.0); MONOCYTES % (AUTO) 10.6 % (2.0-9.0); NEUTROPHILS # (AUTO) 3.2 K/uL (1.8-7.7); NEUTROPHILS % (AUTO) 55.9 % (40.0-70.0); PLATELET COUNT (AUTO) 193 K/uL (150-450); RED BLOOD CELL COUNT(AUTO) 3.17 MIL/uL (4.00-5.20); RED CELL DISTRIBUTION WIDTH 16.1 % (11.5-14.5)
[2018-09-12 06:05] LABS: EOSINOPHILS % (AUTO) 18.7 % (1.0-6.0)
[2018-09-12] MEDS: LEVOTHYROXINE SODIUM 112 MCG TABLET PO SCH (06:15)
[2018-09-12 06:32] LABS: ALBUMIN 2.2 g/dL (3.4-5.0); BILIRUBIN,TOTAL 0.3 mg/dL (0.1-1.0); CALCIUM, TOTAL 8.4 mg/dL (8.8-10.5); FREE T4 (FREE THYROXINE) 1.34 ng/dL (0.76-1.46); POTASSIUM 4.2 mmol/L (3.5-5.1); THYROID STIMULATING HORMONE 1.2 uIU/mL (0.36-3.74); TOTAL PROTEIN, SERUM 6.3 g/dL (6.4-8.2)
[2018-09-12] MEDS ORDERED: PNEUMOCOCCAL VACCINE POLYVALENT 0.5 ML VIAL [PPSV23] IM ONE (06:45)
[2018-09-12 06:50] LABS: GLUCOMETER DEV NAME(LOC) 5S.1; GLUCOSE,POINT OF CARE 85 MG/DL (70-110)
[2018-09-12 06:58] LABS: HEMOGLOBIN A1C 8.9 % (4.5-6.2)
[2018-09-12 07:45] VITALS: BP 146/73
[2018-09-12] MEDS: HEPARIN SODIUM,PORCINE 5,000 UNITS/ML VIAL SQ SCH ×2 (09:14→20:51)
[2018-09-12] MEDS: FUROSEMIDE 40 MG/4 ML VIAL IVP SCH ×2 (09:14→20:43)
[2018-09-12] MEDS: LOSARTAN POTASSIUM 50 MG TABLET PO SCH (09:14)
[2018-09-12] MEDS: ASPIRIN 81 MG CHEWABLE TABLET PO SCH (09:15)
[2018-09-12] MEDS: DOCUSATE SODIUM 100 MG CAPSULE PO SCH ×2 (09:15→20:44)
[2018-09-12] MEDS: CARVEDILOL 25 MG TABLET PO SCH ×2 (09:17→20:45)
[2018-09-12 11:35] VITALS: BP 160/89
[2018-09-12] MEDS: INSULIN LISPRO 100 UNITS/ML SQ PRN ×3 (12:17→21:05)
[2018-09-12 14:54] LABS: GLUCOMETER DEV NAME(LOC) 5S.1; GLUCOSE,POINT OF CARE 243 MG/DL (70-110)
[2018-09-12 20:02] VITALS: BP 168/99
[2018-09-12] MEDS: LATANOPROST 0.005% 2.5 ML OPHTHALMIC SOLUTION OU SCH (20:44)
[2018-09-12] MEDS: PRAVASTATIN SODIUM 20 MG TABLET PO SCH (20:45)
[2018-09-12] MEDS: SERTRALINE HCL 50 MG TABLET PO SCH (20:45)
[2018-09-12] MEDS ORDERED: INSULIN GLARGINE,HUM.REC.ANLOG 100 UNITS/ML SQ SCH (21:00)
[2018-09-13] VITALS (7 sets, daily range): BP systolic 146–196; BP diastolic 68–99
[2018-09-13 02:20] LABS: GLUCOMETER DEV NAME(LOC) 5S.1; GLUCOSE,POINT OF CARE 213 MG/DL (70-110)
[2018-09-13 02:20] LABS: GLUCOMETER DEV NAME(LOC) 5S.1; GLUCOSE,POINT OF CARE 300 MG/DL (70-110)
[2018-09-13] MEDS: CloNIDine HCL 0.1 MG TABLET PO PRN ×2 (04:58→12:02)
[2018-09-13] MEDS: CARVEDILOL 25 MG TABLET PO SCH ×2 (08:42→19:43)
[2018-09-13] MEDS: ASPIRIN 81 MG CHEWABLE TABLET PO SCH (08:42)
[2018-09-13] MEDS: LOSARTAN POTASSIUM 50 MG TABLET PO SCH (08:43)
[2018-09-13] MEDS: LEVOTHYROXINE SODIUM 112 MCG TABLET PO SCH (08:43)
[2018-09-13] MEDS: DOCUSATE SODIUM 100 MG CAPSULE PO SCH ×2 (08:43→19:43)
[2018-09-13] MEDS: HEPARIN SODIUM,PORCINE 5,000 UNITS/ML VIAL SQ SCH ×2 (08:44→19:45)
[2018-09-13] MEDS: FUROSEMIDE 40 MG/4 ML VIAL IVP SCH (08:45)
[2018-09-13 10:02] LABS: BASOPHILS % (AUTO) 1.3 % (0.0-2.0); EOSINOPHILS % (AUTO) 14.5 % (1.0-6.0); HEMATOCRIT 30.1 % (36-46); HEMOGLOBIN 9.6 g/dL (12.0-16.0); LYMPHOCYTES % (AUTO) 18.3 % (22.0-44.0); MEAN CORPUSCULAR HEMOGLOBIN 30.6 pg (26.0-34.0); MEAN CORPUSCULAR VOLUME 96 fL (80-100); MONOCYTES # (AUTO) 0.6 K/uL (0.1-1.0); MONOCYTES % (AUTO) 11.7 % (2.0-9.0); NEUTROPHILS % (AUTO) 54.2 % (40.0-70.0); PLATELET COUNT (AUTO) 192 K/uL (150-450); RED BLOOD CELL COUNT(AUTO) 3.15 MIL/uL (4.00-5.20); RED CELL DISTRIBUTION WIDTH 16.4 % (11.5-14.5)
[2018-09-13 10:22] LABS: CALCIUM, TOTAL 8.6 mg/dL (8.8-10.5); CREATININE 2.01 mg/dL (0.60-1.30); POTASSIUM 4.3 mmol/L (3.5-5.1)
[2018-09-13] MEDS: INSULIN LISPRO 100 UNITS/ML SQ PRN ×3 (12:04→22:07)
[2018-09-13 12:15] LABS: GLUCOMETER DEV NAME(LOC) 5S.1; GLUCOSE,POINT OF CARE 150 MG/DL (70-110)
[2018-09-13 12:16] LABS: GLUCOMETER DEV NAME(LOC) 5S.1; GLUCOSE,POINT OF CARE 320 MG/DL (70-110)
[2018-09-13] MEDS: BUMETANIDE 0.25 MG/ML 4 ML VIAL IVP SCH ×2 (14:31→19:43)
[2018-09-13 19:39] LABS: GLUCOMETER DEV NAME(LOC) 5N.1; GLUCOSE,POINT OF CARE 108 MG/DL (70-110)
[2018-09-13] MEDS: SERTRALINE HCL 50 MG TABLET PO SCH (19:42)
[2018-09-13] MEDS: PRAVASTATIN SODIUM 20 MG TABLET PO SCH (19:43)
[2018-09-13] MEDS: LATANOPROST 0.005% 2.5 ML OPHTHALMIC SOLUTION OU SCH (21:00)
[2018-09-14] MEDS: CloNIDine HCL 0.1 MG TABLET PO PRN ×2 (04:43→16:02)
[2018-09-14 05:32] VITALS: BP 167/89
[2018-09-14] MEDS: LEVOTHYROXINE SODIUM 112 MCG TABLET PO SCH (06:27)
[2018-09-14 06:52] LABS: BASOPHILS % (AUTO) 1.1 % (0.0-2.0); HEMATOCRIT 27.3 % (36-46); HEMOGLOBIN 9.1 g/dL (12.0-16.0); LYMPHOCYTES # (AUTO) 1.1 K/uL (1.0-4.8); LYMPHOCYTES % (AUTO) 21.6 % (22.0-44.0); MEAN CORPUSCULAR HEMOGLOBIN 31.3 pg (26.0-34.0); MEAN CORPUSCULAR HGB CONC 33.4 G/dL (31.0-37.0); MEAN CORPUSCULAR VOLUME 94 fL (80-100); MONOCYTES # (AUTO) 0.7 K/uL (0.1-1.0); NEUTROPHILS # (AUTO) 2.5 K/uL (1.8-7.7); NEUTROPHILS % (AUTO) 48.2 % (40.0-70.0); PLATELET COUNT (AUTO) 179 K/uL (150-450); RED BLOOD CELL COUNT(AUTO) 2.92 MIL/uL (4.00-5.20); RED CELL DISTRIBUTION WIDTH 15.9 % (11.5-14.5)
[2018-09-14 07:09] LABS: ALBUMIN 2.1 g/dL (3.4-5.0); BILIRUBIN,TOTAL 0.2 mg/dL (0.1-1.0); CALCIUM, TOTAL 8.2 mg/dL (8.8-10.5); CREATININE 1.97 mg/dL (0.60-1.30); MAGNESIUM 1.8 mg/dL (1.80-2.40); PHOSPHORUS 4.6 mg/dL (2.5-4.9); POTASSIUM 4.1 mmol/L (3.5-5.1); TOTAL PROTEIN, SERUM 5.4 g/dL (6.4-8.2)
[2018-09-14 07:10] LABS: EOSINOPHILS % (AUTO) 16.1 % (1.0-6.0)
[2018-09-14 07:21] VITALS: BP 157/67
[2018-09-14] MEDS: ASPIRIN 81 MG CHEWABLE TABLET PO SCH (08:16)
[2018-09-14] MEDS: LOSARTAN POTASSIUM 50 MG TABLET PO SCH (08:16)
[2018-09-14] MEDS: DOCUSATE SODIUM 100 MG CAPSULE PO SCH ×2 (08:16→21:16)
[2018-09-14] MEDS: CARVEDILOL 25 MG TABLET PO SCH ×2 (08:16→21:17)
[2018-09-14] MEDS: HEPARIN SODIUM,PORCINE 5,000 UNITS/ML VIAL SQ SCH ×2 (08:16→21:16)
[2018-09-14] MEDS: BUMETANIDE 0.25 MG/ML 4 ML VIAL IVP SCH ×2 (08:17→21:16)
[2018-09-14 08:30] LABS: GLUCOMETER DEV NAME(LOC) 5N.1; GLUCOSE,POINT OF CARE 240 MG/DL (70-110)
[2018-09-14 08:34] LABS: GLUCOMETER DEV NAME(LOC) 5N.1; GLUCOSE,POINT OF CARE 120 MG/DL (70-110)
[2018-09-14 11:04] VITALS: BP 158/78
[2018-09-14 12:20] LABS: GLUCOMETER DEV NAME(LOC) 5N.1; GLUCOSE,POINT OF CARE 223 MG/DL (70-110)
[2018-09-14] MEDS: INSULIN LISPRO 100 UNITS/ML SQ PRN ×2 (12:40→21:18)
[2018-09-14 16:10] VITALS: BP 186/88
[2018-09-14 20:22] VITALS: BP 186/75
[2018-09-14] MEDS: PRAVASTATIN SODIUM 20 MG TABLET PO SCH (21:16)
[2018-09-14] MEDS: LATANOPROST 0.005% 2.5 ML OPHTHALMIC SOLUTION OU SCH (21:17)
[2018-09-14] MEDS: SERTRALINE HCL 50 MG TABLET PO SCH (21:17)
[2018-09-15] VITALS (7 sets, daily range): BP systolic 130–198; BP diastolic 70–100
[2018-09-15] MEDS: CloNIDine HCL 0.1 MG TABLET PO PRN ×3 (00:22→18:01)
[2018-09-15 02:19] LABS: GLUCOMETER DEV NAME(LOC) 5N.2; GLUCOSE,POINT OF CARE 102 MG/DL (70-110)
[2018-09-15 04:35] LABS: GLUCOMETER DEV NAME(LOC) 5N.1; GLUCOSE,POINT OF CARE 151 MG/DL (70-110)
[2018-09-15 04:35] LABS: GLUCOMETER DEV NAME(LOC) 5N.1; GLUCOSE,POINT OF CARE 296 MG/DL (70-110)
[2018-09-15] MEDS: LEVOTHYROXINE SODIUM 112 MCG TABLET PO SCH (06:20)
[2018-09-15 08:04] LABS: GLUCOMETER DEV NAME(LOC) 5N.1; GLUCOSE,POINT OF CARE 177 MG/DL (70-110)
[2018-09-15] MEDS: BUMETANIDE 0.25 MG/ML 4 ML VIAL IVP SCH ×2 (08:13→23:46)
[2018-09-15] MEDS: ASPIRIN 81 MG CHEWABLE TABLET PO SCH (08:13)
[2018-09-15] MEDS: HEPARIN SODIUM,PORCINE 5,000 UNITS/ML VIAL SQ SCH ×2 (08:14→23:47)
[2018-09-15] MEDS: CARVEDILOL 25 MG TABLET PO SCH ×2 (08:14→23:47)
[2018-09-15] MEDS: LOSARTAN POTASSIUM 50 MG TABLET PO SCH (08:14)
[2018-09-15] MEDS: DOCUSATE SODIUM 100 MG CAPSULE PO SCH ×2 (09:00→23:46)
[2018-09-15] MEDS: INSULIN LISPRO 100 UNITS/ML SQ PRN ×2 (11:51→17:24)
[2018-09-15 15:25] LABS: CALCIUM, TOTAL 8.5 mg/dL (8.8-10.5); CREATININE 2.16 mg/dL (0.60-1.30); PHOSPHORUS 4.4 mg/dL (2.5-4.9); POTASSIUM 4.5 mmol/L (3.5-5.1)
[2018-09-15] MEDS: METOLAZONE 2.5 MG TABLET PO SCH (15:34)
[2018-09-15 18:20] LABS: GLUCOMETER DEV NAME(LOC) 5N.1; GLUCOSE,POINT OF CARE 233 MG/DL (70-110)
[2018-09-15] MEDS: LATANOPROST 0.005% 2.5 ML OPHTHALMIC SOLUTION OU SCH (23:46)
[2018-09-15] MEDS: SERTRALINE HCL 50 MG TABLET PO SCH (23:47)
[2018-09-15] MEDS: PRAVASTATIN SODIUM 20 MG TABLET PO SCH (23:49)
[2018-09-16] VITALS (7 sets, daily range): BP systolic 104–178; BP diastolic 47–99
[2018-09-16 05:33] LABS: BASOPHILS % (AUTO) 1.1 % (0.0-2.0); EOSINOPHILS % (AUTO) 12.7 % (1.0-6.0); HEMOGLOBIN 9.7 g/dL (12.0-16.0); LYMPHOCYTES # (AUTO) 1.3 K/uL (1.0-4.8); LYMPHOCYTES % (AUTO) 23.3 % (22.0-44.0); MEAN CORPUSCULAR HEMOGLOBIN 30.7 pg (26.0-34.0); MEAN CORPUSCULAR HGB CONC 32.3 G/dL (31.0-37.0); MEAN CORPUSCULAR VOLUME 95 fL (80-100); MONOCYTES # (AUTO) 0.7 K/uL (0.1-1.0); MONOCYTES % (AUTO) 12.1 % (2.0-9.0); NEUTROPHILS # (AUTO) 2.7 K/uL (1.8-7.7); NEUTROPHILS % (AUTO) 50.8 % (40.0-70.0); PLATELET COUNT (AUTO) 184 K/uL (150-450); RED BLOOD CELL COUNT(AUTO) 3.16 MIL/uL (4.00-5.20); RED CELL DISTRIBUTION WIDTH 16.3 % (11.5-14.5)
[2018-09-16 05:47] LABS: ALBUMIN 2.3 g/dL (3.4-5.0); BILIRUBIN,TOTAL 0.3 mg/dL (0.1-1.0); CALCIUM, TOTAL 8.9 mg/dL (8.8-10.5); CREATININE 1.96 mg/dL (0.60-1.30); POTASSIUM 4.4 mmol/L (3.5-5.1); TOTAL PROTEIN, SERUM 6.3 g/dL (6.4-8.2)
[2018-09-16] MEDS: LEVOTHYROXINE SODIUM 112 MCG TABLET PO SCH (07:19)
[2018-09-16] MEDS: LOSARTAN POTASSIUM 50 MG TABLET PO SCH (08:28)
[2018-09-16] MEDS: ASPIRIN 81 MG CHEWABLE TABLET PO SCH (08:28)
[2018-09-16] MEDS: CARVEDILOL 25 MG TABLET PO SCH ×2 (08:28→23:36)
[2018-09-16] MEDS: BUMETANIDE 0.25 MG/ML 4 ML VIAL IVP SCH ×2 (08:28→23:33)
[2018-09-16] MEDS: HEPARIN SODIUM,PORCINE 5,000 UNITS/ML VIAL SQ SCH ×2 (08:29→23:36)
[2018-09-16] MEDS: METOLAZONE 2.5 MG TABLET PO SCH (08:29)
[2018-09-16] MEDS: DOCUSATE SODIUM 100 MG CAPSULE PO SCH ×2 (08:30→23:36)
[2018-09-16] MEDS: INSULIN LISPRO 100 UNITS/ML SQ PRN ×2 (11:59→18:00)
[2018-09-16] MEDS: CloNIDine HCL 0.1 MG TABLET PO PRN (18:01)
[2018-09-16 20:04] LABS: GLUCOMETER DEV NAME(LOC) 5N.1; GLUCOSE,POINT OF CARE 121 MG/DL (70-110)
[2018-09-16 20:05] LABS: GLUCOMETER DEV NAME(LOC) 5N.1; GLUCOSE,POINT OF CARE 167 MG/DL (70-110)
[2018-09-16 20:05] LABS: GLUCOMETER DEV NAME(LOC) 5N.1; GLUCOSE,POINT OF CARE 138 MG/DL (70-110)
[2018-09-16 20:05] LABS: GLUCOMETER DEV NAME(LOC) 5N.1; GLUCOSE,POINT OF CARE 111 MG/DL (70-110)
[2018-09-16 20:05] LABS: GLUCOMETER DEV NAME(LOC) 5N.1; GLUCOSE,POINT OF CARE 168 MG/DL (70-110)
[2018-09-16 21:45] LABS: GLUCOMETER DEV NAME(LOC) 5N.1; GLUCOSE,POINT OF CARE 133 MG/DL (70-110)
[2018-09-16] MEDS: LATANOPROST 0.005% 2.5 ML OPHTHALMIC SOLUTION OU SCH (23:33)
[2018-09-16] MEDS: PRAVASTATIN SODIUM 20 MG TABLET PO SCH (23:36)
[2018-09-16] MEDS: SERTRALINE HCL 50 MG TABLET PO SCH (23:36)
[2018-09-17 01:05] VITALS: BP 179/100
[2018-09-17] MEDS: CloNIDine HCL 0.1 MG TABLET PO PRN ×3 (02:38→21:46)
[2018-09-17 04:47] VITALS: BP 150/70
[2018-09-17] MEDS: LEVOTHYROXINE SODIUM 112 MCG TABLET PO SCH (06:00)
[2018-09-17] MEDS: INSULIN LISPRO 100 UNITS/ML SQ PRN ×4 (06:01→22:14)
[2018-09-17 06:59] LABS: GLUCOMETER DEV NAME(LOC) 5N.1; GLUCOSE,POINT OF CARE 188 MG/DL (70-110)
[2018-09-17 07:59] VITALS: BP 169/96
[2018-09-17] MEDS: BUMETANIDE 0.25 MG/ML 4 ML VIAL IVP SCH ×3 (08:32→21:47)
[2018-09-17] MEDS: CARVEDILOL 25 MG TABLET PO SCH ×2 (08:32→21:48)
[2018-09-17] MEDS: ASPIRIN 81 MG CHEWABLE TABLET PO SCH (08:32)
[2018-09-17] MEDS: DOCUSATE SODIUM 100 MG CAPSULE PO SCH ×2 (08:32→21:00)
[2018-09-17] MEDS: METOLAZONE 2.5 MG TABLET PO SCH (08:33)
[2018-09-17] MEDS: HEPARIN SODIUM,PORCINE 5,000 UNITS/ML VIAL SQ SCH ×2 (08:33→21:00)
[2018-09-17] MEDS: LOSARTAN POTASSIUM 50 MG TABLET PO SCH (08:33)
[2018-09-17] MEDS ORDERED: METOLAZONE 2.5 MG TABLET PO ONE (09:30)
[2018-09-17 09:59] LABS: CALCIUM, TOTAL 8.7 mg/dL (8.8-10.5); CREATININE 1.99 mg/dL (0.60-1.30); POTASSIUM 4.5 mmol/L (3.5-5.1)
[2018-09-17 10:03] LABS: PHOSPHORUS 4.7 mg/dL (2.5-4.9)
[2018-09-17 12:29] LABS: GLUCOMETER DEV NAME(LOC) 5N.1; GLUCOSE,POINT OF CARE 163 MG/DL (70-110)
[2018-09-17 14:12] VITALS: BP 193/85
[2018-09-17] MEDS: AmLODIPine BESYLATE 5 MG TABLET PO SCH (15:34)
[2018-09-17 17:44] LABS: GLUCOMETER DEV NAME(LOC) 5S.2; GLUCOSE,POINT OF CARE 245 MG/DL (70-110)
[2018-09-17 19:27] VITALS: BP 194/80
[2018-09-17] MEDS: LATANOPROST 0.005% 2.5 ML OPHTHALMIC SOLUTION OU SCH (21:47)
[2018-09-17] MEDS: PRAVASTATIN SODIUM 20 MG TABLET PO SCH (21:48)
[2018-09-17] MEDS: SERTRALINE HCL 50 MG TABLET PO SCH (21:48)
[2018-09-17 23:31] VITALS: BP 140/63
[2018-09-18] VITALS (7 sets, daily range): BP systolic 132–199; BP diastolic 67–94
[2018-09-18 05:33] LABS: HEMATOCRIT 27.3 % (36-46); HEMOGLOBIN 8.9 g/dL (12.0-16.0); LYMPHOCYTES # (AUTO) 0.9 K/uL (1.0-4.8); LYMPHOCYTES % (AUTO) 19.7 % (22.0-44.0); MEAN CORPUSCULAR HEMOGLOBIN 30.6 pg (26.0-34.0); MEAN CORPUSCULAR HGB CONC 32.6 G/dL (31.0-37.0); MEAN CORPUSCULAR VOLUME 94 fL (80-100); MONOCYTES # (AUTO) 0.6 K/uL (0.1-1.0); MONOCYTES % (AUTO) 13.4 % (2.0-9.0); NEUTROPHILS # (AUTO) 2.2 K/uL (1.8-7.7); NEUTROPHILS % (AUTO) 47.9 % (40.0-70.0); PLATELET COUNT (AUTO) 169 K/uL (150-450); RED BLOOD CELL COUNT(AUTO) 2.91 MIL/uL (4.00-5.20); RED CELL DISTRIBUTION WIDTH 15.9 % (11.5-14.5)
[2018-09-18] MEDS: LEVOTHYROXINE SODIUM 112 MCG TABLET PO SCH (05:40)
[2018-09-18] MEDS: CloNIDine HCL 0.1 MG TABLET PO PRN ×2 (05:40→11:38)
[2018-09-18 05:55] LABS: ALBUMIN 2.3 g/dL (3.4-5.0); BILIRUBIN,TOTAL 0.4 mg/dL (0.1-1.0); CALCIUM, TOTAL 8.6 mg/dL (8.8-10.5); CREATININE 2.04 mg/dL (0.60-1.30); POTASSIUM 3.6 mmol/L (3.5-5.1); TOTAL PROTEIN, SERUM 6.1 g/dL (6.4-8.2)
[2018-09-18 07:40] LABS: GLUCOMETER DEV NAME(LOC) 5N.1; GLUCOSE,POINT OF CARE 185 MG/DL (70-110)
[2018-09-18 07:40] LABS: GLUCOMETER DEV NAME(LOC) 5N.1; GLUCOSE,POINT OF CARE 136 MG/DL (70-110)
[2018-09-18 07:40] LABS: GLUCOMETER DEV NAME(LOC) 5N.1; GLUCOSE,POINT OF CARE 250 MG/DL (70-110)
[2018-09-18] MEDS: METOLAZONE 5 MG TABLET PO SCH (08:23)
[2018-09-18] MEDS: AmLODIPine BESYLATE 5 MG TABLET PO SCH (08:23)
[2018-09-18] MEDS: CARVEDILOL 25 MG TABLET PO SCH ×2 (08:23→20:33)
[2018-09-18] MEDS: ASPIRIN 81 MG CHEWABLE TABLET PO SCH (08:23)
[2018-09-18] MEDS: LOSARTAN POTASSIUM 50 MG TABLET PO SCH (08:23)
[2018-09-18] MEDS: BUMETANIDE 0.25 MG/ML 4 ML VIAL IVP SCH ×2 (08:23→20:33)
[2018-09-18] MEDS: DOCUSATE SODIUM 100 MG CAPSULE PO SCH ×2 (08:23→20:33)
[2018-09-18] MEDS: HEPARIN SODIUM,PORCINE 5,000 UNITS/ML VIAL SQ SCH ×2 (08:23→20:36)
[2018-09-18 11:40] LABS: CREATININE,URINE RANDOM 23.8 mg/dL (30.0-125.0)
[2018-09-18] MEDS: INSULIN LISPRO 100 UNITS/ML SQ PRN ×2 (11:46→17:54)
[2018-09-18] MEDS ORDERED: CloNIDine 0.1 MG/24 HOUR PATCH TD SCH (12:26)
[2018-09-18 12:39] LABS: GLUCOMETER DEV NAME(LOC) 5N.1; GLUCOSE,POINT OF CARE 201 MG/DL (70-110)
[2018-09-18] MEDS ORDERED: AmLODIPine BESYLATE 5 MG TABLET PO ONE (17:45)
[2018-09-18 18:39] LABS: GLUCOMETER DEV NAME(LOC) 5N.1; GLUCOSE,POINT OF CARE 192 MG/DL (70-110)
[2018-09-18] MEDS: LATANOPROST 0.005% 2.5 ML OPHTHALMIC SOLUTION OU SCH (20:33)
[2018-09-18] MEDS: SERTRALINE HCL 50 MG TABLET PO SCH (20:33)
[2018-09-18] MEDS: PRAVASTATIN SODIUM 20 MG TABLET PO SCH (20:33)
[2018-09-19 02:14] LABS: GLUCOMETER DEV NAME(LOC) 5N.1; GLUCOSE,POINT OF CARE 140 MG/DL (70-110)
[2018-09-19 05:14] VITALS: BP 165/76
[2018-09-19] MEDS: CloNIDine HCL 0.1 MG TABLET PO PRN ×2 (05:45→12:38)
[2018-09-19] MEDS: LEVOTHYROXINE SODIUM 112 MCG TABLET PO SCH (05:45)
[2018-09-19 06:19] LABS: CREATININE 2.08 mg/dL (0.60-1.30); PHOSPHORUS 4.3 mg/dL (2.5-4.9); POTASSIUM 3.5 mmol/L (3.5-5.1)
[2018-09-19 06:44] LABS: GLUCOMETER DEV NAME(LOC) 5N.1; GLUCOSE,POINT OF CARE 137 MG/DL (70-110)
[2018-09-19] MEDS: AmLODIPine BESYLATE 10 MG TABLET PO SCH (08:17)
[2018-09-19] MEDS: DOCUSATE SODIUM 100 MG CAPSULE PO SCH ×2 (08:17→20:43)
[2018-09-19] MEDS: LOSARTAN POTASSIUM 50 MG TABLET PO SCH ×2 (08:18→12:37)
[2018-09-19] MEDS: ASPIRIN 81 MG CHEWABLE TABLET PO SCH (08:18)
[2018-09-19] MEDS: HEPARIN SODIUM,PORCINE 5,000 UNITS/ML VIAL SQ SCH ×2 (08:18→20:45)
[2018-09-19] MEDS: METOLAZONE 5 MG TABLET PO SCH (08:18)
[2018-09-19] MEDS: BUMETANIDE 0.25 MG/ML 4 ML VIAL IVP SCH ×2 (08:19→20:46)
[2018-09-19] MEDS: CARVEDILOL 25 MG TABLET PO SCH ×2 (08:19→20:43)
[2018-09-19 08:53] VITALS: BP 154/72
[2018-09-19 11:43] VITALS: BP 173/79
[2018-09-19 11:55] LABS: GLUCOMETER DEV NAME(LOC) 5S.3; GLUCOSE,POINT OF CARE 206 MG/DL (70-110)
[2018-09-19] MEDS: INSULIN LISPRO 100 UNITS/ML SQ PRN ×3 (12:41→20:59)
[2018-09-19 17:04] VITALS: BP 151/65
[2018-09-19 18:44] LABS: GLUCOMETER DEV NAME(LOC) 5N.1; GLUCOSE,POINT OF CARE 153 MG/DL (70-110)
[2018-09-19 20:38] VITALS: BP 141/62
[2018-09-19] MEDS: PRAVASTATIN SODIUM 20 MG TABLET PO SCH (20:43)
[2018-09-19] MEDS: LATANOPROST 0.005% 2.5 ML OPHTHALMIC SOLUTION OU SCH (20:45)
[2018-09-19] MEDS: SERTRALINE HCL 50 MG TABLET PO SCH (20:45)
[2018-09-20 00:08] VITALS: BP 160/68
[2018-09-20 00:14] LABS: GLUCOMETER DEV NAME(LOC) 5N.1; GLUCOSE,POINT OF CARE 268 MG/DL (70-110)
[2018-09-20 04:18] VITALS: BP 156/96
[2018-09-20] MEDS: CloNIDine HCL 0.1 MG TABLET PO PRN ×2 (05:55→11:47)
[2018-09-20] MEDS: LEVOTHYROXINE SODIUM 112 MCG TABLET PO SCH (05:55)
[2018-09-20 07:14] LABS: GLUCOMETER DEV NAME(LOC) 5N.1; GLUCOSE,POINT OF CARE 99 MG/DL (70-110)
[2018-09-20 09:09] VITALS: BP 191/88
[2018-09-20] MEDS: BUMETANIDE 0.25 MG/ML 4 ML VIAL IVP SCH (09:25)
[2018-09-20] MEDS: HEPARIN SODIUM,PORCINE 5,000 UNITS/ML VIAL SQ SCH (09:25)
[2018-09-20] MEDS: CARVEDILOL 25 MG TABLET PO SCH (09:26)
[2018-09-20] MEDS: LOSARTAN POTASSIUM 50 MG TABLET PO SCH (09:26)
[2018-09-20] MEDS: ASPIRIN 81 MG CHEWABLE TABLET PO SCH (09:26)
[2018-09-20] MEDS: AmLODIPine BESYLATE 10 MG TABLET PO SCH (09:26)
[2018-09-20] MEDS: DOCUSATE SODIUM 100 MG CAPSULE PO SCH (09:26)
[2018-09-20 10:09] VITALS: BP 153/63
[2018-09-20 11:45] VITALS: BP 176/68
[2018-09-20] MEDS ORDERED: METOLAZONE 2.5 MG TABLET PO ONE (11:45)
[2018-09-20] MEDS ORDERED: CLON.2 PO (12:55)
[2018-09-20] MEDS ORDERED: CLON.2P PERC (12:55)
[2018-09-20] MEDS ORDERED: LOSA100T2 PO (12:56)
[2018-09-20] MEDS ORDERED: BUME1TAB17 PO (13:00)
[2018-09-20] MEDS ORDERED: PRAV20TA4 PO ×2 (13:02→13:03)
[2018-09-20 13:43] VITALS: BP 147/64
[2018-09-20 17:49] LABS: GLUCOMETER DEV NAME(LOC) 5N.1; GLUCOSE,POINT OF CARE 131 MG/DL (70-110)
== END 2018-09-20 14:10 | DRG 291 ==
LOC: EMS 19:48 → 5S 09-12 00:36
PROVIDERS: ADMIT Internal Medicine Geriatric Medicine; ATTEND Internal Medicine Geriatric Medicine
PROC: 3E0234Z Introduction of Serum, Toxoid and Vaccine into Muscle, Percutaneous Approach (ICD-10-PCS; principal; 2018-09-12)
DX: I13.0 Hypertensive heart and chronic kidney disease with heart failure and stage 1 through stage 4 chronic kidney disease, or unspecified chronic kidney disease (principal); I50.33 Acute on chronic diastolic (congestive) heart failure; N18.4 Chronic kidney disease, stage 4 (severe); E03.9 Hypothyroidism, unspecified; F03.90 Unspecified dementia, unspecified severity, without behavioral disturbance, psychotic disturbance, mood disturbance, and anxiety; E78.5 Hyperlipidemia, unspecified; E11.22 Type 2 diabetes mellitus with diabetic chronic kidney disease; D64.9 Anemia, unspecified; E11.21 Type 2 diabetes mellitus with diabetic nephropathy; E11.65 Type 2 diabetes mellitus with hyperglycemia; E78.00 Pure hypercholesterolemia, unspecified; I48.0 Paroxysmal atrial fibrillation; J45.909 Unspecified asthma, uncomplicated; R09.02 Hypoxemia; Z86.19 Personal history of other infectious and parasitic diseases; Z90.710 Acquired absence of both cervix and uterus; Z86.73 Personal history of transient ischemic attack (TIA), and cerebral infarction without residual deficits; Z23 Encounter for immunization
CPT/HCPCS: 82570; 83036; 83735; 84100; 84156; 84439; 84443; 93005; 94640; 96374; 96375; 97162; G0378; J1644; J1815; J1940; J3490

== ENCOUNTER → 2018-10-15 | Outpatient (CLI) | payer MEDICARE, OTHER ==
[~2018-10-15] MED LIST changes: -ACET-2247 PO; -AMLO-512 PO; +AMLO10TA7 PO; +ASPI81 PO; -AUD NEB; -BISA10SU8 PR; -BUME1TAB17 PO; +BUME1TAB34 PO; -CARV12 PO; +CARV25 PO; -CLON.2 PO; +CLON.2P PERC; -FERR-89 PO; -HYDR25TA84 PO; -INSLAN SQ; -INSU100I26 SQ; -IPRNEB IH; -LIDO700A15 TD; +LOSA100T2 PO; -MULT-1103 PO; -ONDA4 PO; -PANT40TA25 PO; -ZARO5 PO; -ZOLP5 PO
[2018-10-15 15:50] LABS: BASOPHILS % (AUTO) 0.7 % (0.0-2.0); EOSINOPHILS % (AUTO) 4.7 % (1.0-6.0); HEMATOCRIT 33.4 % (36-46); HEMOGLOBIN 10.7 g/dL (12.0-16.0); LYMPHOCYTES # (AUTO) 0.9 K/uL (1.0-4.8); LYMPHOCYTES % (AUTO) 20.7 % (22.0-44.0); MEAN CORPUSCULAR VOLUME 97 fL (80-100); MONOCYTES # (AUTO) 0.5 K/uL (0.1-1.0); MONOCYTES % (AUTO) 11.8 % (2.0-9.0); NEUTROPHILS # (AUTO) 2.7 K/uL (1.8-7.7); NEUTROPHILS % (AUTO) 62.1 % (40.0-70.0); PLATELET COUNT (AUTO) 232 K/uL (150-450); RED BLOOD CELL COUNT(AUTO) 3.45 MIL/uL (4.00-5.20); RED CELL DISTRIBUTION WIDTH 14.4 % (11.5-14.5)
[2018-10-15 16:05] LABS: ALBUMIN 2.6 g/dL (3.4-5.0); CALCIUM, TOTAL 9.5 mg/dL (8.8-10.5); CREATININE 2.45 mg/dL (0.60-1.30); PHOSPHORUS 4.4 mg/dL (2.5-4.9); POTASSIUM 4.3 mmol/L (3.5-5.1)
[2018-10-15 16:07] LABS: HEMOGLOBIN A1C 8.7 % (4.5-6.2)
[2018-10-18 20:34] LABS: APPEARANCE,URINE CLEAR (CLEAR); BILIRUBIN,URINE NEGATIVE (NEGATIVE); GLUCOSE, URINE (UA) NEGATIVE (NEGATIVE); KETONES,URINE NEGATIVE (NEGATIVE); LEUKOCYTE ESTERASE ,URINE NEGATIVE (NEGATIVE); NITRATE,URINE NEGATIVE (NEGATIVE); OCCULT BLOOD,URINE NEGATIVE (NEGATIVE); PROTEIN,URINE SEE CONFIRM (NEGATIVE); UROBILINOGEN,URINE 0.2 mg/dL (<=1.0)
[2018-10-18 21:03] LABS: SULFOSALICYLIC ACID,URINE 4+ (Negative)
[2018-10-18 21:04] LABS: BACTERIA,URINE None Seen /HPF (None Seen); RBC,URINE None Seen /HPF (0-2); SQUAMOUS EPITHELIAL CELL,UR Rare /LPF (None Seen); WBC,URINE 0-2 /HPF (0-5)
== END | disposition home or self-care (01) ==
LOC: LABPV 15:08
PROVIDERS: ATTEND Internal Medicine Nephrology
DX: I13.0 Hypertensive heart and chronic kidney disease with heart failure and stage 1 through stage 4 chronic kidney disease, or unspecified chronic kidney disease (principal); E11.22 Type 2 diabetes mellitus with diabetic chronic kidney disease; N18.3 Chronic kidney disease, stage 3 (moderate); I50.9 Heart failure, unspecified
CPT/HCPCS: 82043; 82570; 83036

== ENCOUNTER → 2018-10-31 | Outpatient (CLI) | payer MEDICARE, OTHER ==
[2018-10-31 20:12] LABS: ALBUMIN 2.4 g/dL (3.4-5.0); CALCIUM, TOTAL 8.9 mg/dL (8.8-10.5); CREATININE 2.28 mg/dL (0.60-1.30); PHOSPHORUS 4.3 mg/dL (2.5-4.9); POTASSIUM 5.2 mmol/L (3.5-5.1)
== END | disposition home or self-care (01) ==
LOC: LABMN 19:36
PROVIDERS: ATTEND Internal Medicine Nephrology
DX: E11.22 Type 2 diabetes mellitus with diabetic chronic kidney disease (principal); N18.3 Chronic kidney disease, stage 3 (moderate); I13.0 Hypertensive heart and chronic kidney disease with heart failure and stage 1 through stage 4 chronic kidney disease, or unspecified chronic kidney disease

== ENCOUNTER → 2018-12-02 | Outpatient (CLI) | payer MEDICARE, OTHER ==
[2018-12-02 16:51] LABS: BASOPHILS % (AUTO) 1.2 % (0.0-2.0); HEMATOCRIT 29.3 % (36-46); HEMOGLOBIN 9.4 g/dL (12.0-16.0); LYMPHOCYTES # (AUTO) 1.1 K/uL (1.0-4.8); LYMPHOCYTES % (AUTO) 16.5 % (22.0-44.0); MEAN CORPUSCULAR HEMOGLOBIN 29.8 pg (26.0-34.0); MEAN CORPUSCULAR VOLUME 93 fL (80-100); MONOCYTES # (AUTO) 0.8 K/uL (0.1-1.0); MONOCYTES % (AUTO) 12.7 % (2.0-9.0); NEUTROPHILS # (AUTO) 4.2 K/uL (1.8-7.7); NEUTROPHILS % (AUTO) 64.6 % (40.0-70.0); PLATELET COUNT (AUTO) 289 K/uL (150-450); RED BLOOD CELL COUNT(AUTO) 3.15 MIL/uL (4.00-5.20); RED CELL DISTRIBUTION WIDTH 13.7 % (11.5-14.5)
[2018-12-02 17:03] LABS: ALBUMIN 2.9 g/dL (3.4-5.0); CALCIUM, TOTAL 9.4 mg/dL (8.8-10.5); CREATININE 2.45 mg/dL (0.60-1.30); PHOSPHORUS 4.9 mg/dL (2.5-4.9); POTASSIUM 4.3 mmol/L (3.5-5.1)
[2018-12-02 17:20] LABS: HEMOGLOBIN A1C 8.7 % (4.5-6.2)
[2018-12-03 12:54] LABS: APPEARANCE,URINE CLEAR (CLEAR); BILIRUBIN,URINE NEGATIVE (NEGATIVE); GLUCOSE, URINE (UA) 250 mg/dL (NEGATIVE); KETONES,URINE NEGATIVE (NEGATIVE); LEUKOCYTE ESTERASE ,URINE NEGATIVE (NEGATIVE); NITRATE,URINE NEGATIVE (NEGATIVE); OCCULT BLOOD,URINE NEGATIVE (NEGATIVE); PROTEIN,URINE SEE CONFIRM (NEGATIVE); UROBILINOGEN,URINE 0.2 mg/dL (<=1.0)
[2018-12-03 12:59] LABS: BACTERIA,URINE None Seen /HPF (None Seen); RBC,URINE None Seen /HPF (0-2); SQUAMOUS EPITHELIAL CELL,UR Few /LPF (None Seen); SULFOSALICYLIC ACID,URINE 2+ (Negative); WBC,URINE None Seen /HPF (0-5)
== END | disposition home or self-care (01) ==
LOC: LABPV 11:17
PROVIDERS: ATTEND Internal Medicine Nephrology
DX: I13.0 Hypertensive heart and chronic kidney disease with heart failure and stage 1 through stage 4 chronic kidney disease, or unspecified chronic kidney disease (principal); E11.22 Type 2 diabetes mellitus with diabetic chronic kidney disease; N18.3 Chronic kidney disease, stage 3 (moderate); I50.9 Heart failure, unspecified; M17.11 Unilateral primary osteoarthritis, right knee
CPT/HCPCS: 82043; 82570; 83036

== ENCOUNTER → 2019-01-06 | Outpatient (CLI) | payer MEDICARE, OTHER ==
[2019-01-06 13:45] LABS: % IRON SATURATION 17.3 % (22-44)
[2019-01-06 14:25] LABS: FOLATE SERUM 14.3 ng/mL (5.4-)
== END | disposition home or self-care (01) ==
LOC: LABMN 10:20
PROVIDERS: ATTEND Internal Medicine Nephrology
DX: I12.9 Hypertensive chronic kidney disease with stage 1 through stage 4 chronic kidney disease, or unspecified chronic kidney disease (principal); E11.22 Type 2 diabetes mellitus with diabetic chronic kidney disease; N18.3 Chronic kidney disease, stage 3 (moderate); M17.11 Unilateral primary osteoarthritis, right knee
CPT/HCPCS: 82607; 82728; 82746; 83540; 83550

== ENCOUNTER → 2019-01-07 | Outpatient (CLI) | payer MEDICARE, OTHER ==
[2019-01-07 19:27] LABS: BASOPHILS % (AUTO) 0.8 % (0.0-2.0); EOSINOPHILS % (AUTO) 5.4 % (1.0-6.0); HEMATOCRIT 28.7 % (36-46); HEMOGLOBIN 9.4 g/dL (12.0-16.0); LYMPHOCYTES # (AUTO) 0.9 K/uL (1.0-4.8); LYMPHOCYTES % (AUTO) 16.5 % (22.0-44.0); MEAN CORPUSCULAR HEMOGLOBIN 28.9 pg (26.0-34.0); MEAN CORPUSCULAR HGB CONC 32.7 G/dL (31.0-37.0); MEAN CORPUSCULAR VOLUME 89 fL (80-100); MONOCYTES # (AUTO) 0.7 K/uL (0.1-1.0); MONOCYTES % (AUTO) 12.9 % (2.0-9.0); NEUTROPHILS # (AUTO) 3.4 K/uL (1.8-7.7); NEUTROPHILS % (AUTO) 64.4 % (40.0-70.0); PLATELET COUNT (AUTO) 288 K/uL (150-450); RED BLOOD CELL COUNT(AUTO) 3.25 MIL/uL (4.00-5.20); RED CELL DISTRIBUTION WIDTH 14.5 % (11.5-14.5)
[2019-01-07 20:00] LABS: PLATELET MORPHOLOGY COMMENT NORMAL
== END | disposition home or self-care (01) ==
LOC: LABMN 16:38
PROVIDERS: ATTEND Internal Medicine Nephrology
DX: I13.0 Hypertensive heart and chronic kidney disease with heart failure and stage 1 through stage 4 chronic kidney disease, or unspecified chronic kidney disease (principal); E11.22 Type 2 diabetes mellitus with diabetic chronic kidney disease; N18.3 Chronic kidney disease, stage 3 (moderate); I50.9 Heart failure, unspecified

== ENCOUNTER → 2019-01-29 | Outpatient (CLI) | payer MEDICARE, OTHER ==
[2019-01-29 12:27] LABS: BASOPHILS % (AUTO) 1.2 % (0.0-2.0); EOSINOPHILS % (AUTO) 4.3 % (1.0-6.0); HEMATOCRIT 28.1 % (36-46); HEMOGLOBIN 9.2 g/dL (12.0-16.0); LYMPHOCYTES # (AUTO) 0.9 K/uL (1.0-4.8); LYMPHOCYTES % (AUTO) 17.9 % (22.0-44.0); MEAN CORPUSCULAR HGB CONC 32.7 G/dL (31.0-37.0); MEAN CORPUSCULAR VOLUME 89 fL (80-100); MONOCYTES # (AUTO) 0.5 K/uL (0.1-1.0); MONOCYTES % (AUTO) 11.1 % (2.0-9.0); NEUTROPHILS # (AUTO) 3.2 K/uL (1.8-7.7); NEUTROPHILS % (AUTO) 65.5 % (40.0-70.0); PLATELET COUNT (AUTO) 293 K/uL (150-450); RED BLOOD CELL COUNT(AUTO) 3.17 MIL/uL (4.00-5.20); RED CELL DISTRIBUTION WIDTH 15.6 % (11.5-14.5)
[2019-01-29 12:50] LABS: ALBUMIN 2.2 g/dL (3.4-5.0); CALCIUM, TOTAL 8.5 mg/dL (8.8-10.5); CREATININE 2.51 mg/dL (0.60-1.30); PHOSPHORUS 4.7 mg/dL (2.5-4.9); POTASSIUM 4.2 mmol/L (3.5-5.1)
[2019-01-29 13:08] LABS: HEMOGLOBIN A1C 9.8 % (4.5-6.2)
[2019-01-29 17:10] LABS: CREATININE,URINE RANDOM 42.3 mg/dL (30.0-125.0)
== END | disposition home or self-care (01) ==
LOC: LABPV 11:13
PROVIDERS: ATTEND Internal Medicine Nephrology
DX: I12.9 Hypertensive chronic kidney disease with stage 1 through stage 4 chronic kidney disease, or unspecified chronic kidney disease (principal); N18.3 Chronic kidney disease, stage 3 (moderate); M17.11 Unilateral primary osteoarthritis, right knee; Z79.899 Other long term (current) drug therapy
CPT/HCPCS: 82043; 82570; 83036; 84156

== ENCOUNTER → 2019-03-11 | Outpatient (CLI) | payer MEDICARE, OTHER ==
[2019-03-11 16:52] LABS: BASOPHILS % (AUTO) 0.8 % (0.0-2.0); EOSINOPHILS % (AUTO) 5.4 % (1.0-6.0); HEMATOCRIT 27.9 % (36-46); HEMOGLOBIN 9.1 g/dL (12.0-16.0); LYMPHOCYTES # (AUTO) 0.8 K/uL (1.0-4.8); MEAN CORPUSCULAR HEMOGLOBIN 28.6 pg (26.0-34.0); MEAN CORPUSCULAR HGB CONC 32.6 G/dL (31.0-37.0); MEAN CORPUSCULAR VOLUME 88 fL (80-100); MONOCYTES % (AUTO) 15.9 % (2.0-9.0); NEUTROPHILS # (AUTO) 3.9 K/uL (1.8-7.7); NEUTROPHILS % (AUTO) 64.9 % (40.0-70.0); PLATELET COUNT (AUTO) 356 K/uL (150-450); RED BLOOD CELL COUNT(AUTO) 3.19 MIL/uL (4.00-5.20); RED CELL DISTRIBUTION WIDTH 15.9 % (11.5-14.5)
[2019-03-11 17:26] LABS: ALBUMIN 2.4 g/dL (3.4-5.0); CALCIUM, TOTAL 8.4 mg/dL (8.8-10.5); CREATININE 3.83 mg/dL (0.60-1.30); PHOSPHORUS 6.4 mg/dL (2.5-4.9); POTASSIUM 3.7 mmol/L (3.5-5.1)
[2019-03-11 17:31] LABS: % IRON SATURATION 12.1 % (22-44); HEMOGLOBIN A1C 8.9 % (4.5-6.2)
[2019-03-11 18:26] LABS: APPEARANCE,URINE CLOUDY (CLEAR); BILIRUBIN,URINE NEGATIVE (NEGATIVE); GLUCOSE, URINE (UA) 100 mg/dL (NEGATIVE); KETONES,URINE NEGATIVE (NEGATIVE); LEUKOCYTE ESTERASE ,URINE SMALL (NEGATIVE); NITRATE,URINE NEGATIVE (NEGATIVE); OCCULT BLOOD,URINE NEGATIVE (NEGATIVE); PH,URINE 5.5 (5.0-8.0); PROTEIN,URINE SEE CONFIRM (NEGATIVE); UROBILINOGEN,URINE 0.2 mg/dL (<=1.0)
[2019-03-11 18:33] LABS: PROTEIN,URINE RANDOM 169 mg/dL (0-11.9)
[2019-03-11 18:40] LABS: SULFOSALICYLIC ACID,URINE 4+ (Negative)
[2019-03-11 18:41] LABS: RBC,URINE None Seen /HPF (0-2)
[2019-03-11 18:42] LABS: BACTERIA,URINE Few /HPF (None Seen); RENAL EPITHELIAL CELLS,URINE Rare /LPF (None Seen); SQUAMOUS EPITHELIAL CELL,UR Moderate /LPF (None Seen); TRANSITIONAL EPI CELLS,URINE Few /LPF (None Seen)
[2019-03-12 08:58] LABS: FOLATE SERUM 12.9 ng/mL (5.4-)
== END | disposition home or self-care (01) ==
LOC: LABPV 13:01
PROVIDERS: ATTEND Internal Medicine Nephrology
DX: E11.22 Type 2 diabetes mellitus with diabetic chronic kidney disease (principal); I13.0 Hypertensive heart and chronic kidney disease with heart failure and stage 1 through stage 4 chronic kidney disease, or unspecified chronic kidney disease; N18.3 Chronic kidney disease, stage 3 (moderate); I50.9 Heart failure, unspecified; Z79.899 Other long term (current) drug therapy; E78.00 Pure hypercholesterolemia, unspecified; I48.91 Unspecified atrial fibrillation; D64.9 Anemia, unspecified
CPT/HCPCS: 82043; 82570; 82607; 82652; 82728; 82746; 83036; 83540; 83550; 83970; 84156; 87086

== ENCOUNTER → 2019-04-10 | Outpatient (CLI) | payer MEDICARE, OTHER ==
[2019-04-10 14:34] LABS: CALCIUM, TOTAL 8.5 mg/dL (8.8-10.5); CREATININE 2.67 mg/dL (0.60-1.30); MAGNESIUM 1.8 mg/dL (1.80-2.40); PHOSPHORUS 4.9 mg/dL (2.5-4.9); POTASSIUM 4.3 mmol/L (3.5-5.1)
== END | disposition home or self-care (01) ==
LOC: LABMN 13:58
PROVIDERS: ATTEND Internal Medicine Nephrology
DX: I12.9 Hypertensive chronic kidney disease with stage 1 through stage 4 chronic kidney disease, or unspecified chronic kidney disease (principal); E11.22 Type 2 diabetes mellitus with diabetic chronic kidney disease; N18.4 Chronic kidney disease, stage 4 (severe); R80.1 Persistent proteinuria, unspecified; D63.1 Anemia in chronic kidney disease; D50.8 Other iron deficiency anemias
CPT/HCPCS: 83735

== ENCOUNTER → 2019-04-16 | Outpatient (CLI) | payer MEDICARE, OTHER ==
[~2019-04-16] MED LIST changes: +INSU100V SQ; +SITA25 PO
[2019-04-16 15:14] LABS: BASOPHILS % (AUTO) 0.9 % (0.0-2.0); EOSINOPHILS % (AUTO) 6.5 % (1.0-6.0); HEMOGLOBIN 8.1 g/dL (12.0-16.0); LYMPHOCYTES # (AUTO) 0.9 K/uL (1.0-4.8); LYMPHOCYTES % (AUTO) 14.7 % (22.0-44.0); MEAN CORPUSCULAR HEMOGLOBIN 28.1 pg (26.0-34.0); MEAN CORPUSCULAR HGB CONC 32.2 G/dL (31.0-37.0); MEAN CORPUSCULAR VOLUME 87 fL (80-100); MONOCYTES # (AUTO) 1.1 K/uL (0.1-1.0); MONOCYTES % (AUTO) 17.7 % (2.0-9.0); NEUTROPHILS # (AUTO) 3.6 K/uL (1.8-7.7); NEUTROPHILS % (AUTO) 60.2 % (40.0-70.0); PLATELET COUNT (AUTO) 321 K/uL (150-450); RED BLOOD CELL COUNT(AUTO) 2.86 MIL/uL (4.00-5.20); RED CELL DISTRIBUTION WIDTH 15.5 % (11.5-14.5)
== END | disposition home or self-care (01) ==
LOC: LABMN 14:35
PROVIDERS: ATTEND Internal Medicine Nephrology
DX: I13.0 Hypertensive heart and chronic kidney disease with heart failure and stage 1 through stage 4 chronic kidney disease, or unspecified chronic kidney disease (principal); N18.3 Chronic kidney disease, stage 3 (moderate); I50.812 Chronic right heart failure

== ENCOUNTER → 2019-06-10 | Outpatient (CLI) | payer MEDICARE, OTHER ==
[~2019-06-10] MED LIST changes: +ASPI-728 PO; -ASPI81 PO; -CLON.2P PERC; +CLON0.2T2 PO
[2019-06-10 14:56] LABS: BASOPHILS % (AUTO) 1.1 % (0.0-2.0); EOSINOPHILS % (AUTO) 5.1 % (1.0-6.0); HEMATOCRIT 35.8 % (36-46); HEMOGLOBIN 11.4 g/dL (12.0-16.0); LYMPHOCYTES # (AUTO) 0.7 K/uL (1.0-4.8); LYMPHOCYTES % (AUTO) 12.3 % (22.0-44.0); MEAN CORPUSCULAR HEMOGLOBIN 28.7 pg (26.0-34.0); MEAN CORPUSCULAR HGB CONC 31.8 G/dL (31.0-37.0); MEAN CORPUSCULAR VOLUME 90 fL (80-100); MONOCYTES # (AUTO) 0.7 K/uL (0.1-1.0); MONOCYTES % (AUTO) 12.2 % (2.0-9.0); NEUTROPHILS # (AUTO) 3.9 K/uL (1.8-7.7); NEUTROPHILS % (AUTO) 69.3 % (40.0-70.0); PLATELET COUNT (AUTO) 341 K/uL (150-450); RED BLOOD CELL COUNT(AUTO) 3.96 MIL/uL (4.00-5.20); RED CELL DISTRIBUTION WIDTH 18.3 % (11.5-14.5)
[2019-06-10 15:08] LABS: ALBUMIN 2.4 g/dL (3.4-5.0); CALCIUM, TOTAL 9.1 mg/dL (8.8-10.5); CREATININE 3.2 mg/dL (0.60-1.30); PHOSPHORUS 4.6 mg/dL (2.5-4.9); POTASSIUM 3.9 mmol/L (3.5-5.1)
== END | disposition home or self-care (01) ==
LOC: LABMN 14:27
PROVIDERS: ATTEND Internal Medicine Nephrology
DX: I13.0 Hypertensive heart and chronic kidney disease with heart failure and stage 1 through stage 4 chronic kidney disease, or unspecified chronic kidney disease (principal); E11.22 Type 2 diabetes mellitus with diabetic chronic kidney disease; N18.3 Chronic kidney disease, stage 3 (moderate); I50.30 Unspecified diastolic (congestive) heart failure
CPT/HCPCS: 82043; 82570; 83735